=== PATIENT | male | born 1990 | race Caucasian/White ===

== ENCOUNTER 2016-06-03 13:46 | Emergency (ER) | payer MEDICAID ==
[2016-06-03] MEDS ORDERED: SULFAMETH/TRIMETH DS 800/160 MG TABLET PO STA (15:15)
[2016-06-03] MEDS ORDERED: FLUCONAZOLE 100 MG TABLET PO STA (15:15)
[2016-06-03] MEDS ORDERED: FLUCONAZOLE 100 MG TABLET ONE (15:17)
[2016-06-03] MEDS ORDERED: SULFAMETH/TRIMETH DS 800/160 MG TABLET PO ONE (15:18)
== END 2016-06-03 15:27 | disposition home or self-care (01) ==
DX: N39.0 Urinary tract infection, site not specified (principal); B37.2 Candidiasis of skin and nail; G82.20 Paraplegia, unspecified; S24.102S Unspecified injury at T2-T6 level of thoracic spinal cord, sequela; V03.90XS Pedestrian on foot injured in collision with car, pick-up truck or van, unspecified whether traffic or nontraffic accident, sequela; Z99.3 Dependence on wheelchair
CPT/HCPCS: 36415; 80048; 81001; 83605; 85025; 87086; 99283; A9270

== ENCOUNTER 2016-06-10 15:35 | Emergency (ER) | payer MEDICAID ==
[2016-06-10] MEDS ORDERED: CEPHALEXIN 250 MG CAPSULE PO STA (19:09)
[2016-06-10] MEDS ORDERED: CEPHALEXIN 250 MG CAPSULE PO ONE (19:18)
[2016-06-10] MEDS ORDERED: CEPHALEXIN 250 MG Prepack 8 PO ONE ×2 (19:49→19:54)
== END 2016-06-10 20:40 | disposition home or self-care (01) ==
DX: N30.01 Acute cystitis with hematuria (principal); G82.20 Paraplegia, unspecified; G47.30 Sleep apnea, unspecified
CPT/HCPCS: 51702; 81001; 87077; 87086; 87181; 99283; A9270

== ENCOUNTER 2016-06-14 13:58 | Emergency (ER) | payer MEDICAID ==
[2016-06-14] MEDS ORDERED: CIPROFLOXACIN 250 MG TABLET PO STA (15:32)
[2016-06-14] MEDS ORDERED: CIPROFLOXACIN 250 MG TABLET PO ONE (15:35)
== END 2016-06-14 15:46 | disposition home or self-care (01) ==
DX: N49.2 Inflammatory disorders of scrotum (principal); T83.511A Infection and inflammatory reaction due to indwelling urethral catheter, initial encounter; N39.0 Urinary tract infection, site not specified; Y84.6 Urinary catheterization as the cause of abnormal reaction of the patient, or of later complication, without mention of misadventure at the time of the procedure; R03.0 Elevated blood-pressure reading, without diagnosis of hypertension; G82.20 Paraplegia, unspecified; S24.102S Unspecified injury at T2-T6 level of thoracic spinal cord, sequela; X58.XXXS Exposure to other specified factors, sequela
CPT/HCPCS: 55100; 87070; 87077; 87181; 87205; 99283; A9270

== ENCOUNTER 2016-06-16 13:51 | Emergency (ER) | payer MEDICAID ==
[2016-06-16 14:17] VITALS: BP 148/90
--- NOTE | 2016-06-16 14:20 | ED Physician Documentation ---
PD HPI WOUND RECHECK - Stated complaint Stated Complaint: MALE - Chief complaint Chief Complaint: General - Histroy obtained from History obtained from: Patient - History of Present Illness Location: Other (R scrotum) Timing - onset: How many days ago (several) Pain level max: 0 Pain level now: 0 Associated symptoms: No: Fever, Redness, Swelling, Drainage Similar symptoms before: Diagnosis (abscess) Recently seen: Emergency Dept (2 days ago for same, I&D performed. Packing placed, here for recheck.) Review of Systems Constitutional: denies: Fever, Chills GI: denies: Vomiting Skin: denies: Rash Musculoskeletal: denies: Neck pain, Back pain Neurologic: denies: Headache PD PAST MEDICAL HISTORY - Past Medical History Respiratory: Asthma, Sleep apnea : Indwelling catheter Musculoskeletal: Paraplegia - Past Surgical History Past Surgical History: Yes HEENT: Tonsil/Adenoidectomy - Present Medications Home Medications: Ambulatory Orders Medication Instructions Recorded Confirmed Docusate Sodium 250Mg Capsule 0 mg PO .FREQ 06/03/16 06/16/16 [Colace 250Mg Capsule] Na Phos,M-B/Na Phos,Di-Ba [Enema] 0 mg PO .FREQ 06/03/16 06/16/16 Naproxen 0 mg PO .FREQ 06/03/16 06/16/16 Nystatin [Nystop] 1 applic TOP BID #1 bottle 06/03/16 06/16/16 Polyethylene Glycol 3350 [Miralax] 0 mg PO .FREQ 06/03/16 06/16/16 Senna [Senokot] 0 mg PO .FREQ 06/03/16 06/16/16 Sulfamethoxazole/Trimethoprim 1 each PO BID 7 Days 06/03/16 06/16/16 [Sulfamethoxazole-Tmp Ds Tablet] Cephalexin [Keflex] 500 mg PO QID #40 capsule 06/10/16 06/16/16 Ciprofloxacin HCl [Cipro] 500 mg PO BID #14 tablet 06/14/16 06/16/16 - Allergies Allergies/Adverse Reactions: Allergies Allergy/AdvReac Type Severity Reaction Status Date / Time No Known Drug Allergies Allergy Verified 06/16/16 14:13 - Social History Does the pt smoke?: No Smoking Status: Never smoker Does the pt drink ETOH?: No Does the pt have substance abuse?: No - Immunizations Immunizations are current?: Yes - POLST Patient has POLST: No PD ED PE NORMAL - Vitals Vital signs reviewed: Yes - General General: Alert and oriented X 3, No acute distress - Male Male : Other (Scrotum - Packing in place. No erythema, no drainage. No tenderness.) - Derm Derm: Warm and dry - Neuro Neuro: Alert and oriented X 3 - Psych Psych: Normal mood, Normal affect Results - Vitals Vitals: Vital Signs - 24 hr 06/16/16 06/16/16 14:00 14:17 Temperature 36.2 C L Heart Rate 93 107 H Respiratory 16 19 Rate Blood Pressure 148/90 H O2 Saturation 97 96 Oxygen O2 Source Room air PD MEDICAL DECISION MAKING - ED course Complexity details: reviewed old records, reviewed results, considered differential, d/w patient ED course: Patient presents to the emergency department for recheck of a scrotal abscess. Packing was removed. No drainage. No erythema, no swelling. We will continue antibiotics and follow-up with his doctor. Patient counseled regarding signs and symptoms for which I believe and urgent re-evaluation would be necessary. Patient with good understanding of and agreement to plan and is comfortable going home at this time This document was made in part using voice recognition software. While efforts are made to proofread this document, sound alike and grammatical errors may occur. Departure - Departure Disposition: 01 Home, Self Care Clinical Impression: Wound check, abscess Condition: Good Instructions: ED Abscess IandD Follow-Up: Ankit Ramey MD [Primary Care Provider] - Within 3 Days Comments: Return if you worsen. Continue your antibiotics at home. Your blood pressure was elevated today on check in to the emergency department. This does not mean that you have hypertension, it is a common phenomenon to check into the emergency department and have elevated blood pressure. I recommend that you see your primary care physician within the week to have it rechecked when you're feeling better. Discharge Date/Time: 06/16/16 15:18
== END 2016-06-16 15:18 | disposition home or self-care (01) ==
LOC: ED 13:51
DX: N49.2 Inflammatory disorders of scrotum (principal); R03.0 Elevated blood-pressure reading, without diagnosis of hypertension; G82.20 Paraplegia, unspecified; J45.909 Unspecified asthma, uncomplicated; G47.30 Sleep apnea, unspecified
CPT/HCPCS: 99283

== ENCOUNTER 2016-07-16 22:01 | Outpatient (CLI) | payer MEDICAID | END 2016-07-16 22:02 | disposition critical access hospital (66) | LOC: EMS 22:01 | PROVIDERS: ATTEND Surgery | DX: R31.9 Hematuria, unspecified (principal) | CPT/HCPCS: A0425; A0429 ==

== ENCOUNTER 2016-07-16 22:07 | Emergency (ER) | payer MEDICAID ==
[2016-07-16 22:16] VITALS: BP 115/68
[2016-07-16 22:32] LABS: BILIRUBIN,URINE NEGATIVE (NEGATIVE)
[2016-07-16 22:35] LABS: UA w/ MICROSCOPIC CHARGE YES
[2016-07-16 22:38] LABS: UR CULTURE IF IND INDICATED; WBC,URINE >25 /HPF (0-3)
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
[2016-07-16] MEDS ORDERED: CIPROFLOXACIN 250 MG TABLET PO STA (22:51)
[2016-07-16] MEDS ORDERED: CIPROFLOXACIN 250 MG TABLET PO ONE (22:55)
== END 2016-07-16 23:16 | disposition home or self-care (01) ==
LOC: EDUNIT# → ED 22:07
DX: T83.511A Infection and inflammatory reaction due to indwelling urethral catheter, initial encounter (principal); N30.91 Cystitis, unspecified with hematuria; G82.20 Paraplegia, unspecified; S24.102S Unspecified injury at T2-T6 level of thoracic spinal cord, sequela; V89.2XXS Person injured in unspecified motor-vehicle accident, traffic, sequela; J45.909 Unspecified asthma, uncomplicated; G47.30 Sleep apnea, unspecified
CPT/HCPCS: 81001; 87077; 87086; 87181; 99283; A9270; 81003

== ENCOUNTER 2016-07-16 23:25 | Outpatient (CLI) | payer MEDICAID | END 2016-07-16 23:26 | disposition home or self-care (01) | LOC: EMS 23:25 | PROVIDERS: ATTEND Surgery | DX: N39.0 Urinary tract infection, site not specified (principal) | CPT/HCPCS: A0425; A0428 ==

== ENCOUNTER 2016-07-19 18:36 | Emergency (ER) | payer MEDICAID ==
[2016-07-19 18:43] VITALS: BP 146/102
[2016-07-19] MEDS ORDERED: NITROFURANTOIN MACRO 100 MG CAPSULE PO STA (18:48)
--- NOTE | 2016-07-19 18:57 | ED Physician Documentation ---
History of Present Illness - Stated complaint Stated Complaint: MEDS NEEDED - Chief complaint Chief Complaint: General - History obtained from History obtained from: Patient - History of Present Illness Timing: Today Pain level max: 0 Pain level now: 0 - Additonal information Additional information: prescription for UTI was changed to macrobid today. States insurance won't cover until saturday. Review of Systems Constitutional: denies: Fever GI: denies: Abdominal Pain, Vomiting PD PAST MEDICAL HISTORY - Past Medical History Cardiovascular: None Respiratory: Asthma, Sleep apnea Neuro: None Endocrine/Autoimmune: None GI: None : Indwelling catheter HEENT: None Psych: None Musculoskeletal: Paraplegia Derm: None - Past Surgical History Past Surgical History: Yes HEENT: Tonsil/Adenoidectomy - Present Medications Home Medications: Ambulatory Orders Medication Instructions Recorded Confirmed Docusate Sodium 250Mg Capsule 250 mg PO .FREQ 06/03/16 07/19/16 [Colace 250Mg Capsule] Na Phos,M-B/Na Phos,Di-Ba [Enema] 133 mg PO .FREQ 06/03/16 07/19/16 Naproxen 500 mg PO .FREQ 06/03/16 07/19/16 Nystatin [Nystop] 1 applic TOP BID #1 bottle 06/03/16 07/19/16 Polyethylene Glycol 3350 [Miralax] 17 mg PO .FREQ 06/03/16 07/19/16 Senna [Senokot] 8.6 mg PO .FREQ 06/03/16 07/19/16 Albuterol Sulf [Ventolin Hfa 18 gm INH DAILY 07/16/16 07/19/16 Inhaler] Ciprofloxacin HCl [Cipro] 500 mg PO BID #20 tablet 07/16/16 07/19/16 Fluticasone Propionate [Flovent 250 mcg INH DAILY 07/16/16 07/19/16 Diskus] Nitrofurantoin Monohyd/M-Cryst 100 mg PO BID #2 capsule 07/19/16 [Macrobid 100 mg Capsule] - Allergies Allergies/Adverse Reactions: Allergies Allergy/AdvReac Type Severity Reaction Status Date / Time No Known Drug Allergies Allergy Verified 07/19/16 18:43 - Social History Does the pt smoke?: No Smoking Status: Never smoker Does the pt drink ETOH?: No Does the pt have substance abuse?: No - Immunizations Immunizations are current?: Yes - POLST Patient has POLST: No PD ED PE NORMAL - Vitals Vital signs reviewed: Yes - General General: Alert and oriented X 3, No acute distress - Derm Derm: Warm and dry - Neuro Neuro: Alert and oriented X 3 - Psych Psych: Normal mood, Normal affect Results - Vitals Vitals: Vital Signs - 24 hr 07/19/16 18:39 Temperature 36 C L Heart Rate 90 Respiratory 15 Rate Blood Pressure 146/102 H O2 Saturation 95 Oxygen O2 Source Room air PD MEDICAL DECISION MAKING - ED course Complexity details: reviewed old records, considered differential, d/w patient ED course: Patient is a 25-year-old male who presents to the emergency department stating he is unable to fill his Macrobid until Saturday because his insurance will not cover it. He is paraplegic and does have a chronic indwelling Page catheter. No other complaints at this time. 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 Patient counseled regarding signs and symptoms for which I believe and urgent re-evaluation would be necessary. Patient with good understanding of and agreement to plan and is comfortable going home at this time This document was made in part using voice recognition software. While efforts are made to proofread this document, sound alike and grammatical errors may occur. Departure - Departure Disposition: 01 Home, Self Care Clinical Impression: UTI (urinary tract infection) Qualifiers: Urinary tract infection type: catheter-associated UTI Indwelling urinary catheter type: indwelling urethral catheter Encounter type: initial encounter Qualified Code(s): T83.511A - Infection and inflammatory reaction due to indwelling urethral catheter, initial encounter Condition: Good Instructions: ED UTI Cystitis Male Follow-Up: Ankit Ramey MD [Primary Care Provider] - Within 1 week Prescriptions: Nitrofurantoin Monohyd/M-Cryst [Macrobid 100 mg Capsule] 100 mg PO BID #2 capsule Comments: This should get you through until saturday, when you can supervisor electronics assembly the remainder of your medications. Discharge Date/Time: 07/19/16 19:08
[2016-07-19] MEDS ORDERED: NITROFURANTOIN MACRO 100 MG CAPSULE PO ONE (19:03)
== END 2016-07-19 19:08 | disposition home or self-care (01) ==
LOC: ED 18:36
DX: T83.511A Infection and inflammatory reaction due to indwelling urethral catheter, initial encounter (principal); N39.0 Urinary tract infection, site not specified; Y84.6 Urinary catheterization as the cause of abnormal reaction of the patient, or of later complication, without mention of misadventure at the time of the procedure; G82.20 Paraplegia, unspecified
CPT/HCPCS: 99283; A9270

== ENCOUNTER 2016-08-09 06:58 | Outpatient (CLI) | payer MEDICAID | END 2016-08-09 06:59 | disposition critical access hospital (66) | LOC: EMS 06:58 | PROVIDERS: ATTEND Surgery | DX: N49.2 Inflammatory disorders of scrotum (principal) | CPT/HCPCS: A0425; A0429 ==

== ENCOUNTER 2016-08-09 07:03 | Emergency (ER) | payer MEDICAID ==
[2016-08-09 08:00] LABS: BILIRUBIN,URINE NEGATIVE (NEGATIVE); PH,URINE 6.5 PH (5.0-7.5)
[2016-08-09 08:04] LABS: UA w/ MICROSCOPIC CHARGE YES
[2016-08-09 08:16] LABS: UR CULTURE IF IND INDICATED; WBC,URINE >25 /HPF (0-3)
--- NOTE | 2016-08-09 09:21 | Ultrasound Report ---
LIMITED SCROTAL ULTRASOUND: 08/09/2016 CLINICAL INDICATION: Fluid coming from right side scrotum, evaluate for drainable collection. TECHNIQUE: Real-time scanning was performed with roofing sales representative static images obtained. FINDINGS: Ultrasound of the upper portion of the right scrotum was performed. The right testicle is visualized. Limited visualization of the right testicle appears unremarkable. There is scrotal ski n thickening. No drainable fluid collection is identified. IMPRESSION: SCROTAL SKIN THICKENING. NO EVIDENCE OF A DRAINABLE FLUID COLLECTION. JOB #: [id number] EXT JOB #:[id number]
[2016-08-09] MEDS ORDERED: cefTRIAXone 1 GM VIAL IM STA (09:24)
[2016-08-09] MEDS ORDERED: cefTRIAXone 1 GM VIAL ONE (09:34)
[2016-08-09] MEDS ORDERED: LIDOCAINE 1% 2 ML VIAL ONE (09:35)
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
[2016-08-09 13:12] VITALS: BP 150/82
== END 2016-08-09 13:10 | disposition home or self-care (01) ==
LOC: EDUNIT# → ED 07:03
DX: N49.2 Inflammatory disorders of scrotum (principal); G82.20 Paraplegia, unspecified; T83.511A Infection and inflammatory reaction due to indwelling urethral catheter, initial encounter; N30.01 Acute cystitis with hematuria; J45.909 Unspecified asthma, uncomplicated; G47.30 Sleep apnea, unspecified
CPT/HCPCS: 76870; 81001; 81003; 87077; 87086; 99283; 99284

== ENCOUNTER 2016-08-09 13:20 | Outpatient (CLI) | payer MEDICAID | END 2016-08-09 13:21 | disposition home or self-care (01) | LOC: EMS 13:20 | PROVIDERS: ATTEND Surgery | DX: G82.20 Paraplegia, unspecified (principal) | CPT/HCPCS: A0425; A0428 ==

== ENCOUNTER 2016-08-30 13:15 | Emergency (ER) | payer MEDICAID ==
[2016-08-30 13:31] LABS: BILIRUBIN,URINE NEGATIVE (NEGATIVE)
[2016-08-30 13:33] LABS: UA w/ MICROSCOPIC CHARGE YES
[2016-08-30 13:34] LABS: UR CULTURE IF IND INDICATED; WBC,URINE >25 /HPF (0-3)
[2016-08-30] MEDS ORDERED: cefTRIAXone 1 GM VIAL IM STA (14:55)
--- NOTE | 2016-08-30 14:57 | ED Physician Documentation ---
PD HPI MALE - Stated complaint Stated Complaint: MALE - Chief complaint Chief Complaint: Abd Pain - History obtained from History obtained from: Patient, Family - History of Present Illness Timing - onset: Yesterday Timing - duration: Days (1) Timing - details: Gradual onset, Still present Associated symptoms: Other (foul smelling cloudy urine from thomas) PD HPI MALE CONTRIB FACTORS: Indwelling catheter Similar symptoms before: Diagnosis (UTI) Recently seen: Emergency Dept (The patient has had a UTI in July and in August both time s organism was sensitive to Ceftriaxone and macrobid.) - Additional information Additional information: 25-year-old wheelchair bound T5 paraplegic with an indwelling Thomas catheter has developed foul-smelling urine and cloudy urine again. He most recently had a course of antibiotics started on 09 August which she has finished. He is not otherwise feeling ill, he has no nausea no fever no aches. Review of Systems Constitutional: denies: Fever, Chills, Myalgias, Fatigue, Sweats Eyes: denies: Decreased vision Nose: denies: Congestion Throat: denies: Sore throat Cardiac: denies: Chest pain / pressure Respiratory: denies: Cough GI: denies: Abdominal Pain, Nausea, Vomiting : reports: Other (foul smelling and cloudy urine). denies: Discharge Musculoskeletal: denies: Neck pain, Extremity swelling Neurologic: reports: Focal weakness. denies: Generalized weakness PD PAST MEDICAL HISTORY - Past Medical History Cardiovascular: None Respiratory: Asthma, Sleep apnea Neuro: None Endocrine/Autoimmune: None GI: None : Indwelling catheter HEENT: None Psych: None Musculoskeletal: Paraplegia Derm: None Other Past Medical History: Frequent UTIs - Past Surgical History Past Surgical History: Yes HEENT: Tonsil/Adenoidectomy - Present Medications Home Medications: Ambulatory Orders Medication Instructions Recorded Confirmed Docusate Sodium 250Mg Capsule 250 mg PO .FREQ 06/03/16 08/30/16 [Colace 250Mg Capsule] Na Phos,M-B/Na Phos,Di-Ba [Enema] 133 mg PO .FREQ 06/03/16 08/30/16 Naproxen 500 mg PO .FREQ 06/03/16 08/30/16 Nystatin [Nystop] 1 applic TOP BID #1 bottle 06/03/16 08/30/16 Polyethylene Glycol 3350 [Miralax] 17 mg PO .FREQ 06/03/16 08/30/16 Senna [Senokot] 8.6 mg PO .FREQ 06/03/16 08/30/16 Albuterol Sulf [Ventolin Hfa 18 gm INH DAILY 07/16/16 08/30/16 Inhaler] Fluticasone Propionate [Flovent 250 mcg INH DAILY 07/16/16 08/30/16 Diskus] Nitrofurantoin [Macrobid] 100 mg PO BID #20 capsule 08/30/16 - Allergies Allergies/Adverse Reactions: Allergies Allergy/AdvReac Type Severity Reaction Status Date / Time No Known Drug Allergies Allergy Verified 08/30/16 13:18 - Social History Does the pt smoke?: No Smoking Status: Never smoker Does the pt drink ETOH?: No Does the pt have substance abuse?: No - Immunizations Immunizations are current?: Yes - POLST Patient has POLST: No PD ED PE NORMAL - Vitals Vital signs reviewed: Yes (hypertensive) - General General: Alert and oriented X 3, No acute distress, Well developed/nourished - HEENT HEENT: Atraumatic, PERRL - Neck Neck: Supple, no meningeal sign - Respiratory Respiratory: No respiratory distress - Back Back: No CVA TTP, No spinal TTP - Derm Derm: Normal color, Warm and dry, No rash - Extremities Extremities: No deformity, No edema - Neuro Neuro: Alert and oriented X 3, 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, Normal speech - Psych Psych: Normal mood, Normal affect Results - Vitals Vitals: Vital Signs - 24 hr 08/30/16 13:17 Temperature 36.3 C L Heart Rate 94 Respiratory 17 Rate Blood Pressure 135/81 H O2 Saturation 100 Oxygen O2 Source Room air - Labs Labs: Laboratory Tests 08/30/16 13:20 Urine Color LIGHT YELLOW Urine Clarity CLOUDY Urine pH 7.0 Ur Specific [place] 1.020 Urine Protein 100 H Urine Glucose (UA) NEGATIVE Urine Ketones NEGATIVE Urine Occult Blood LARGE H Urine Nitrite POSITIVE H Urine Bilirubin NEGATIVE Urine Urobilinogen 0.2 (NORMAL) Ur Leukocyte Esterase LARGE H Urine RBC TNTC H Urine WBC >25 H Urine WBC Clumps PRESENT Ur Epithelial Cells FEW Renal Tubular Ur Squamous Epith Cells NONE SEEN Urine Bacteria Many H Ur Microscopic Review INDICATED Urine Culture Comments INDICATED PD MEDICAL DECISION MAKING - ED course Complexity details: reviewed old records, reviewed results, re-evaluated patient , considered differential, d/w patient, d/w family ED course: 25-year-old male paraplegic with an indwelling Thomas catheter has another urinary tract infection. He is given 1 g of Rocephin IM and we will put him back on the Macrobid. Departure - Departure Disposition: 01 Home, Self Care Clinical Impression: UTI (urinary tract infection) Qualifiers: Urinary tract infection type: catheter-associated UTI Indwelling urinary catheter type: indwelling urethral catheter Encounter type: initial encounter Qualified Code(s): T83.511A - Infection and inflammatory reaction due to indwelling urethral catheter, initial encounter; N39.0 - Urinary tract infection , site not specified Instructions: ED UTI Cystitis Male Follow-Up: Ankit Ramey MD [Primary Care Provider] - Prescriptions: Nitrofurantoin [Macrobid] 100 mg PO BID #20 capsule
[2016-08-30] MEDS ORDERED: cefTRIAXone 1 GM VIAL ONE (14:59)
[2016-08-30] MEDS ORDERED: LIDOCAINE 1% 2 ML VIAL ONE (15:00)
[2016-08-30 15:18] VITALS: BP 136/87
== END 2016-08-30 15:42 | disposition home or self-care (01) ==
LOC: ED 13:15
DX: T83.511A Infection and inflammatory reaction due to indwelling urethral catheter, initial encounter (principal); N39.0 Urinary tract infection, site not specified; Y84.6 Urinary catheterization as the cause of abnormal reaction of the patient, or of later complication, without mention of misadventure at the time of the procedure; Z99.3 Dependence on wheelchair; G82.20 Paraplegia, unspecified; J45.909 Unspecified asthma, uncomplicated
CPT/HCPCS: 81001; 81003; 87077; 87086; 96372; 99283

== ENCOUNTER 2016-09-25 21:20 | Emergency (ER) | payer MEDICAID ==
[2016-09-25] MEDS ORDERED: CARBAMIDE PEROXIDE 6.5% OTIC DROPS EACHEAR STA (22:37)
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
[2016-09-25] MEDS ORDERED: CARBAMIDE PEROXIDE 6.5% OTIC DROPS ONE (22:40)
[2016-09-25 22:49] VITALS: BP 132/80
== END 2016-09-25 22:59 | disposition home or self-care (01) ==
LOC: ED 21:20
DX: H61.23 Impacted cerumen, bilateral (principal); J45.909 Unspecified asthma, uncomplicated; G47.30 Sleep apnea, unspecified; G82.20 Paraplegia, unspecified
CPT/HCPCS: 99283

== ENCOUNTER 2016-09-29 17:45 | Emergency (ER) | payer MEDICAID ==
--- NOTE | 2016-09-29 18:06 | ED Physician Documentation ---
PD HPI HEENT FB - Chief complaint Chief Complaint: Heent - History obtained from History obtained from: Patient - History of Present Illness Timing - onset: Other (Seen here a few nights ago for cerumen impaction with incomplete relief and continues to have right ear fullness especially with no hearing there despite using earwax drops.) Review of Systems Constitutional: denies: Fever, Chills Ears: reports: Loss of hearing, Ear pain Nose: denies: Rhinorrhea / runny nose, Congestion PD PAST MEDICAL HISTORY - Past Medical History Cardiovascular: None Respiratory: Asthma, Sleep apnea Neuro: None Endocrine/Autoimmune: None GI: None : Indwelling catheter HEENT: None Psych: None Musculoskeletal: Paraplegia Derm: None - Past Surgical History Past Surgical History: Yes HEENT: Tonsil/Adenoidectomy - Present Medications Home Medications: Ambulatory Orders Medication Instructions Recorded Confirmed Docusate Sodium 250Mg Capsule 250 mg PO .FREQ 06/03/16 08/30/16 [Colace 250Mg Capsule] Na Phos,M-B/Na Phos,Di-Ba [Enema] 133 mg PO .FREQ 06/03/16 08/30/16 Naproxen 500 mg PO .FREQ 06/03/16 08/30/16 Nystatin [Nystop] 1 applic TOP BID #1 bottle 06/03/16 08/30/16 Polyethylene Glycol 3350 [Miralax] 17 mg PO .FREQ 06/03/16 08/30/16 Senna [Senokot] 8.6 mg PO .FREQ 06/03/16 08/30/16 Albuterol Sulf [Ventolin Hfa 18 gm INH DAILY 07/16/16 08/30/16 Inhaler] Fluticasone Propionate [Flovent 250 mcg INH DAILY 07/16/16 08/30/16 Diskus] Nitrofurantoin [Macrobid] 100 mg PO BID #20 capsule 08/30/16 - Allergies Allergies/Adverse Reactions: Allergies Allergy/AdvReac Type Severity Reaction Status Date / Time No Known Drug Allergies Allergy Verified 09/29/16 17:51 - Social History Does the pt smoke?: No Smoking Status: Never smoker Does the pt drink ETOH?: No Does the pt have substance abuse?: No - Immunizations Immunizations are current?: Yes - POLST Patient has POLST: No PD ED PE NORMAL - Vitals Vital signs reviewed: Yes - General General: Alert and oriented X 3, No acute distress, Other (Paraplegic, in a wheelchair) - HEENT HEENT: Other (Complete cerumen impaction on the right and partial on the left) - Neuro Neuro: Alert and oriented X 3, Normal speech Results - Vitals Vitals: Vital Signs - 24 hr 09/29/16 17:48 Temperature 37 C Heart Rate 110 H Respiratory 17 Rate Blood Pressure 161/93 H O2 Saturation 97 Oxygen O2 Source Room air Procedures - General procedure General procedure: Both ears were disimpacted of cerumen using syringe irrigation with complete success. Departure - Departure Disposition: 01 Home, Self Care Clinical Impression: Impacted cerumen of both ears Condition: Good Record reviewed to determine appropriate education?: Yes Instructions: ED Earwax Removal Comments: Your blood pressure was elevated today on check into the emergency department. This does not mean that you have hypertension, it is a common phenomenon to come to the emergency department and have elevated blood pressure. I recommend that she see her primary care physician within the week to have it rechecked when you are feeling better.
[2016-09-29 18:13] VITALS: BP 129/90
== END 2016-09-29 18:12 | disposition home or self-care (01) ==
LOC: ED 17:45
DX: H61.23 Impacted cerumen, bilateral (principal); G82.20 Paraplegia, unspecified; J45.909 Unspecified asthma, uncomplicated; G47.30 Sleep apnea, unspecified; R03.0 Elevated blood-pressure reading, without diagnosis of hypertension
CPT/HCPCS: 69209; 99282; 99283

== ENCOUNTER 2017-01-14 23:48 | Outpatient (CLI) | payer MEDICAID | END 2017-01-14 23:49 | disposition critical access hospital (66) | LOC: EMS 23:48 | PROVIDERS: ATTEND Surgery | DX: T85.638A Leakage of other specified internal prosthetic devices, implants and grafts, initial encounter (principal) | CPT/HCPCS: A0425; A0429 ==

== ENCOUNTER 2017-01-14 23:56 | Emergency (ER) | payer MEDICAID ==
--- NOTE | 2017-01-15 00:28 | ED Physician Documentation ---
History of Present Illness - Stated complaint Stated Complaint: LEAKING CATHETER - Chief complaint Chief Complaint: General - History obtained from History obtained from: Patient - History of Present Illness Timing: Today (tonight) Pain level now: 0 - Additonal information Additional information: patient is paraplegic and has indwelling thomas as a result. Tonight, he noted leaking around the catheter into his diaper. He does not have sensation that would otherwise allow him to feel when his bladder is full. He says that this has happened before with his catheter, and sometimes it will resolve on its own and other times he has had to have the catheter changed. Review of Systems Constitutional: denies: Fever GI: denies: Abdominal Pain PD PAST MEDICAL HISTORY - Past Medical History Past Medical History: Yes Cardiovascular: None Respiratory: Asthma, Sleep apnea Neuro: None Endocrine/Autoimmune: None GI: None : Indwelling catheter HEENT: None Psych: None Musculoskeletal: Paraplegia Derm: None - Past Surgical History Past Surgical History: Yes HEENT: Tonsil/Adenoidectomy - Present Medications Home Medications: Ambulatory Orders Medication Instructions Recorded Confirmed Docusate Sodium 250Mg Capsule 250 mg PO .FREQ 06/03/16 08/30/16 [Colace 250Mg Capsule] Na Phos,M-B/Na Phos,Di-Ba [Enema] 133 mg PO .FREQ 06/03/16 08/30/16 Naproxen 500 mg PO .FREQ 06/03/16 08/30/16 Nystatin [Nystop] 1 applic TOP BID #1 bottle 06/03/16 08/30/16 Polyethylene Glycol 3350 [Miralax] 17 mg PO .FREQ 06/03/16 08/30/16 Senna [Senokot] 8.6 mg PO .FREQ 06/03/16 08/30/16 Albuterol Sulf [Ventolin Hfa 18 gm INH DAILY 07/16/16 08/30/16 Inhaler] Fluticasone Propionate [Flovent 250 mcg INH DAILY 07/16/16 08/30/16 Diskus] Nitrofurantoin [Macrobid] 100 mg PO BID #20 capsule 08/30/16 - Allergies Allergies/Adverse Reactions: Allergies Allergy/AdvReac Type Severity Reaction Status Date / Time No Known Drug Allergies Allergy Verified 01/15/17 00:05 - Social History Does the pt smoke?: No Smoking Status: Never smoker Does the pt drink ETOH?: No Does the pt have substance abuse?: No - Immunizations Immunizations are current?: Yes - POLST Patient has POLST: No PD ED PE NORMAL - Vitals Vital signs reviewed: Yes - General General: Alert and oriented X 3, No acute distress - Abdomen Abdomen: Soft, Non tender, Non distended - Derm Derm: Normal color, Warm and dry - Neuro Neuro: Alert and oriented X 3 Results - Vitals Vitals: Vital Signs - 24 hr 01/14/17 01/15/17 01/15/17 23:59 00:30 00:45 Temperature 36.2 C L Heart Rate 107 H 90 90 Respiratory 18 16 18 Rate Blood Pressure 154/104 H 140/96 H 133/88 H O2 Saturation 97 96 100 Oxygen O2 Source Room air PD MEDICAL DECISION MAKING - ED course Complexity details: reviewed old records, considered differential, d/w patient ED course: RN removed thomas and replaced it without difficulty or resistance. There was large amount of clear, yellow urine in the thomas bag on presentation (before the thomas was removed; there was over 1000 cc in the leg bag). After catheter was replaced, there was small amount of urine output, clear yellow urine. Departure - Departure Disposition: 01 Home, Self Care Clinical Impression: Thomas catheter problem Qualifiers: Encounter type: initial encounter Qualified Code(s): T83.9XXA - Unspecified complication of genitourinary prosthetic device, implant and graft, initial encounter Condition: Good Instructions: ED Catheter Care Thomas Discharge Date/Time: 01/15/17 00:45
[2017-01-15 00:51] VITALS: BP 133/88
== END 2017-01-15 00:45 | disposition home or self-care (01) ==
LOC: EDUNIT# → ED 23:56
DX: T83.9XXA Unspecified complication of genitourinary prosthetic device, implant and graft, initial encounter (principal); G82.20 Paraplegia, unspecified
CPT/HCPCS: 51702; 99283

== ENCOUNTER 2017-01-15 00:49 | Outpatient (CLI) | payer MEDICAID | END 2017-01-15 00:50 | disposition home or self-care (01) | LOC: EMS 00:49 | PROVIDERS: ATTEND Surgery | DX: T85.638A Leakage of other specified internal prosthetic devices, implants and grafts, initial encounter (principal) | CPT/HCPCS: A0425; A0428 ==

== ENCOUNTER 2017-04-02 01:03 | Outpatient (CLI) | payer MEDICAID | END 2017-04-02 01:04 | disposition critical access hospital (66) | LOC: EMS 01:03 | PROVIDERS: ATTEND Surgery | DX: R11.2 Nausea with vomiting, unspecified (principal) | CPT/HCPCS: A0425; A0429 ==

== ENCOUNTER 2017-04-02 01:10 | Emergency (ER) | payer MEDICAID ==
[2017-04-02] MEDS ORDERED: ONDANSETRON 4 MG/2 ML VIAL IVP STA (01:17)
[2017-04-02] MEDS ORDERED: SODIUM CHLORIDE 0.9% 1,000 ML IV ONE ×3 (01:17→04:22)
[2017-04-02 01:45] LABS: BASOPHILS # (AUTO) 0.1 10^3/uL (0.0-0.1); BASOPHILS % (AUTO) 0.5 %; EOSINOPHILS # (AUTO) 0.1 10^3/uL (0.0-0.7); EOSINOPHILS % (AUTO) 0.4 %; HGB - HEMOGLOBIN 12.1 g/dL (14.0-18.0); LYMPHOCYTES # (AUTO) 1.1 10^3/uL (1.5-3.5); LYMPHOCYTES % (AUTO) 9.2 %; MEAN CORPUSCULAR HEMOGLOBIN 26.2 pg (27.0-31.0); MEAN CORPUSCULAR HGB CONC 30.5 g/dL (32.0-36.0); MEAN CORPUSCULAR VOLUME 85.9 fL (80.0-94.0); MEAN PLATELET VOLUME 7.8 fL (7.4-11.4); MONOCYTES # (AUTO) 0.8 10^3/uL (0.0-1.0); MONOCYTES % (AUTO) 6.6 %; NEUTROPHILS # (AUTO) 10.3 10^3/uL (1.5-6.6); NEUTROPHILS % (AUTO) 83.3 %; PLT - PLATELET COUNT 292 10^3/uL (130-450); RED BLOOD COUNT 4.63 10^6/uL (4.70-6.10); RED CELL DISTRIBUTION WIDTH 15.2 % (12.0-15.0); WHITE BLOOD COUNT 12.3 x10^3/uL (4.8-10.8)
[2017-04-02 01:49] LABS: GLUCOSE, URINE (UA) NEGATIVE (NEGATIVE); KETONES,URINE (UA) NEGATIVE (NEGATIVE); OCCULT BLOOD,URINE LARGE (NEGATIVE)
[2017-04-02 01:52] LABS: ALBUMIN 3.6 g/dL (3.2-5.5); ALBUMIN/GLOBULIN RATIO 0.9 (1.0-2.2); BILIRUBIN,TOTAL 0.8 mg/dL (0.2-1.0); CALCIUM 8.4 mg/dL (8.5-10.3); CREATININE 0.6 mg/dL (0.6-1.2); TOTAL PROTEIN 7.7 g/dL (6.7-8.2)
[2017-04-02 01:53] LABS: CLARITY,URINE BLOODY (CLEAR)
[2017-04-02 01:57] LABS: BILIRUBIN,URINE COLOR INTERFERENCE (NEGATIVE)
[2017-04-02] MEDS ORDERED: levoFLOXacin 750 MG/150 ML 750 MG/150 ML BAG IV ONE ×2 (01:58→02:11)
[2017-04-02 02:00] LABS: RBC,URINE TNTC /HPF (0-5)
[2017-04-02 02:01] LABS: BACTERIA,URINE Moderate /HPF (None Seen); SQUAMOUS EPITHELIAL CELL,UR RARE Squamous (<= Few)
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
[2017-04-02 05:08] VITALS: BP 113/63
== END 2017-04-02 05:35 | disposition home or self-care (01) ==
LOC: EDBD → EDUNIT# → SUPCPDRO 01:10 → ED 01:10
DX: N39.0 Urinary tract infection, site not specified (principal); G82.20 Paraplegia, unspecified; Z96.0 Presence of urogenital implants; J45.909 Unspecified asthma, uncomplicated; R11.2 Nausea with vomiting, unspecified
CPT/HCPCS: 36415; 80053; 81001; 81003; 83605; 83690; 85025; 87040; 87077; 87086; 93005; 96361; 96374; 99283; 99284

== ENCOUNTER 2017-04-02 05:43 | Outpatient (CLI) | payer MEDICAID | END 2017-04-02 05:44 | disposition home or self-care (01) | LOC: EMS 05:43 | PROVIDERS: ATTEND Surgery | DX: N39.0 Urinary tract infection, site not specified (principal); G82.20 Paraplegia, unspecified | CPT/HCPCS: A0425; A0428 ==

== ENCOUNTER 2017-04-03 17:10 | Outpatient (CLI) | payer MEDICAID | END 2017-04-03 17:11 | disposition critical access hospital (66) | LOC: EMS 17:10 | PROVIDERS: ATTEND Surgery | DX: N50.9 Disorder of male genital organs, unspecified (principal); G82.20 Paraplegia, unspecified | CPT/HCPCS: A0425; A0429 ==

== ENCOUNTER 2017-04-03 17:17 | Emergency (ER) | payer MEDICAID ==
--- NOTE | 2017-04-03 17:41 | ED Physician Documentation ---
PD HPI MALE - Stated complaint Stated Complaint: MALE - Chief complaint Chief Complaint: General - History obtained from History obtained from: Patient - History of Present Illness Timing - onset: Today (he has wetness/drainage on right scrotum and feels there is some blood/drainage. He thought it was initially coming from around thomas catheter. 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 He is not sure where is was coming from. Sore noted on right scrotum.) PD HPI MALE CONTRIB FACTORS: Indwelling catheter Similar symptoms before: Has not had sx before (not in that area but has had staph infections in other areas.) Review of Systems Constitutional: denies: Fever, Chills Nose: denies: Rhinorrhea / runny nose, Congestion Throat: denies: Sore throat Respiratory: denies: Dyspnea, Cough GI: denies: Abdominal Pain, Vomiting Neurologic: reports: Focal weakness (from lower abdomen down, due to prior cord injury.) PD PAST MEDICAL HISTORY - Past Medical History Cardiovascular: None Respiratory: Asthma, Sleep apnea Neuro: None Endocrine/Autoimmune: None GI: None : Indwelling catheter HEENT: None Psych: None Musculoskeletal: Paraplegia Derm: None - Past Surgical History Past Surgical History: Yes HEENT: Tonsil/Adenoidectomy - Present Medications Home Medications: Ambulatory Orders Medication Instructions Recorded Confirmed Docusate Sodium 250Mg Capsule 250 mg PO DAILY PRN 06/03/16 04/07/17 [Colace 250Mg Capsule] Na Phos,M-B/Na Phos,Di-Ba [Enema] 133 mg [place] DAILY 06/03/16 04/07/17 Naproxen 500 mg PO BID PRN 06/03/16 04/07/17 Senna [Senokot] 8.6 mg PO DAILY PRN 06/03/16 04/07/17 Albuterol Sulf [Ventolin Hfa 2 puffs INH DAILY PRN 07/16/16 04/07/17 Inhaler] Psyllium [Metamucil] 1 packet PO DAILY PRN 03/06/17 04/07/17 Levofloxacin [Levaquin] 750 mg PO DAILY #4 tablet 04/02/17 04/07/17 Ondansetron Odt [Zofran] 4 mg TL Q6H PRN #20 tablet 04/02/17 04/07/17 Mupirocin 1 applic TP TID #15 oint...g. 04/03/17 04/07/17 Sulfamethox/Trimeth 800/160 1 each PO BID #14 tablet 04/03/17 04/07/17 [Bactrim Ds 800/160] - Allergies Allergies/Adverse Reactions: Allergies Allergy/AdvReac Type Severity Reaction Status Date / Time No Known Drug Allergies Allergy Verified 04/07/17 13:08 - Living Situation Living Situation: reports: With family Living Arrangement: reports: At home, Other (uses [employer] at home for transfers and has wheelchair. ) - Social History Does the pt smoke?: No Smoking Status: Never smoker Does the pt drink ETOH?: No Does the pt have substance abuse?: No - Immunizations Immunizations are current?: Yes - POLST Patient has POLST: No PD ED PE NORMAL - Vitals Vital signs reviewed: Yes - General General: Alert and oriented X 3, Well developed/nourished - Neck Neck: Supple, no meningeal sign, No adenopathy - Cardiac Cardiac: RRR, No murmur - Respiratory Respiratory: Clear bilaterally - Abdomen Abdomen: Non distended - Male Male : Other (thomas in place with normal meatus. Right scrotum with open sore that has some serosanginous drainage. No redness of the scrotal tissue. Culture obtained. Presume staph sore/abscess that drained spontaneously. ) - Rectal Rectal: Deferred - Back Back: No CVA TTP - Derm Derm: Normal color, Warm and dry Results - Vitals Vitals: Oxygen O2 Source Room air - Labs Labs: Microbiology 04/03/17 18:00 Wound Culture - Final Scrotum Enterobacter Cloacae Complex PD MEDICAL DECISION MAKING - ED course Complexity details: considered differential (he has a sore on right scrotum that is open and has some draining. He also had UTI by UA. Has indwelling thomas. ), d/w patient Departure - Departure Disposition: 01 Home, Self Care Clinical Impression: Scrotal abscess, Paraplegia UTI (urinary tract infection) Qualifiers: Urinary tract infection type: catheter-associated UTI Indwelling urinary catheter type: indwelling urethral catheter Encounter type: subsequent encounter Qualified Code(s): T83.511D - Infection and inflammatory reaction due to indwelling urethral catheter, subsequent encounter Condition: Stable Record reviewed to determine appropriate education?: Yes Instructions: ED Staph Infec Abx Tx Only Prescriptions: Mupirocin 1 applic TP TID #15 oint...g. Sulfamethox/Trimeth 800/160 [Bactrim Ds 800/160] 1 each PO BID #14 tablet Comments: It does look like a scrotal abscess or infection of the skin. There is only slight drainage right now and the opening is patent. This may be similar type of infection to what is in the urinary tract but I be concerned of staph infection instead and would like to cover that with Bactrim antibiotic. The urine culture result is not done from your visit recently. If that returns in the next day or 2 showing urinary sensitivity to sulfa, then we could discontinue the Levaquin and just treat with the Bactrim only. Clean the scrotal skin area with warm water and soap and water twice daily and apply mupirocin antibiotic ointment. Recheck if not improving over the next few days. Discharge Date/Time: 04/03/17 18:52
[2017-04-03] MEDS ORDERED: MUPIROCIN 2% OINT 1 GM TOP STA (17:59)
[2017-04-03] MEDS ORDERED: SULFAMETH/TRIMETH DS 800/160 MG TABLET PO STA (17:59)
[2017-04-03 18:52] VITALS: BP 130/88
== END 2017-04-03 18:52 | disposition home or self-care (01) ==
LOC: EDUNIT# → ED 17:17
DX: N49.2 Inflammatory disorders of scrotum (principal); T83.511A Infection and inflammatory reaction due to indwelling urethral catheter, initial encounter; G82.20 Paraplegia, unspecified; J45.909 Unspecified asthma, uncomplicated; G47.30 Sleep apnea, unspecified
CPT/HCPCS: 87070; 87077; 87181; 87205; 99283; A9270

== ENCOUNTER 2017-04-03 18:55 | Outpatient (CLI) | payer MEDICAID | END 2017-04-03 18:56 | disposition home or self-care (01) | LOC: EMS 18:55 | PROVIDERS: ATTEND Surgery | DX: G82.20 Paraplegia, unspecified (principal); E66.01 Morbid (severe) obesity due to excess calories | CPT/HCPCS: A0425; A0428 ==

== ENCOUNTER 2017-04-05 17:48 | Outpatient (CLI) | payer MEDICAID | END 2017-04-05 17:49 | disposition critical access hospital (66) | LOC: EMS 17:48 | PROVIDERS: ATTEND Surgery | DX: B99.9 Unspecified infectious disease (principal) | CPT/HCPCS: A0425; A0429 ==

== ENCOUNTER 2017-04-05 17:54 | Emergency (ER) | payer MEDICAID ==
--- NOTE | 2017-04-05 18:59 | ED Physician Documentation ---
PD HPI FEMALE - Stated complaint Stated Complaint: NEEDS IV MEDS - Chief complaint Chief Complaint: General - History obtained from History obtained from: Patient - History of Present Illness Timing - onset: How many days ago (few) Timing - details: Gradual onset Associated symptoms: No: Fever, Hematuria Contributing factors: Other (indwelling thomas due to paraplegia.) Recently seen: Emergency Dept (he was seen for lower abd pains few days ago and had UTI dx (with indwelling thomas). Also then next day with scrotal sore and culture obtained. Urine culture not resulted at that time, but is now reported as atypical bacterial cause that is resistant to many meds. Patient is called to get IV abx dose, as no oral med would cover it by culture result. The scrotal sore is prelim with gram positive cocci, no ID as yet.) Review of Systems Constitutional: denies: Fever, Chills GI: denies: Vomiting, Diarrhea PD PAST MEDICAL HISTORY - Past Medical History Cardiovascular: None Respiratory: Asthma, Sleep apnea Neuro: None Endocrine/Autoimmune: None GI: None : Indwelling catheter HEENT: None Psych: None Musculoskeletal: Paraplegia Derm: None - Past Surgical History Past Surgical History: Yes HEENT: Tonsil/Adenoidectomy - Present Medications Home Medications: Ambulatory Orders Medication Instructions Recorded Confirmed Docusate Sodium 250Mg Capsule 250 mg PO DAILY PRN 06/03/16 04/06/17 [Colace 250Mg Capsule] Na Phos,M-B/Na Phos,Di-Ba [Enema] 133 mg [place] DAILY 06/03/16 04/06/17 Naproxen 500 mg PO BID PRN 06/03/16 04/06/17 Senna [Senokot] 8.6 mg PO DAILY PRN 06/03/16 04/06/17 Albuterol Sulf [Ventolin Hfa 2 puffs INH DAILY PRN 07/16/16 04/06/17 Inhaler] Psyllium [Metamucil] 1 packet PO DAILY PRN 03/06/17 04/06/17 Levofloxacin [Levaquin] 750 mg PO DAILY #4 tablet 04/02/17 04/06/17 Ondansetron Odt [Zofran] 4 mg TL Q6H PRN #20 tablet 04/02/17 04/06/17 Mupirocin 1 applic TP TID #15 oint...g. 04/03/17 04/06/17 Sulfamethox/Trimeth 800/160 1 each PO BID #14 tablet 04/03/17 04/06/17 [Bactrim Ds 800/160] - Allergies Allergies/Adverse Reactions: Allergies Allergy/AdvReac Type Severity Reaction Status Date / Time No Known Drug Allergies Allergy Verified 04/06/17 12:35 - Social History Does the pt smoke?: No Smoking Status: Never smoker Does the pt drink ETOH?: No Does the pt have substance abuse?: No - Immunizations Immunizations are current?: Yes - POLST Patient has POLST: No PD ED PE NORMAL - Vitals Vital signs reviewed: Yes - General General: Alert and oriented X 3, No acute distress, Well developed/nourished - Abdomen Abdomen: Soft, Non tender - Back Back: No CVA TTP - Derm Derm: Warm and dry - Neuro Neuro: Alert and oriented X 3, Other (leg paralysis c/w baseline. ) Results - Vitals Vitals: Oxygen O2 Source Room air PD MEDICAL DECISION MAKING - ED course Complexity details: considered differential (no worse symptoms. However had to come to ED for IV dose of meds. Gentamycin chosen as will cover the urine culture sensitivities from Urine culture and should cover staph presuming that is what will grow from scrotal sore. Tried to give 5 mg/kg for daily dosing, but Hospital only has 5 vials (400 mg) available. Have to be close enough for now, and will have him return tomorrow afternoon for repeat dose. Presume 5 days course. Will change thomas today since getting appropriate abx for it. ), d/ w patient Departure - Departure Disposition: 01 Home, Self Care Clinical Impression: UTI (urinary tract infection) Qualifiers: Urinary tract infection type: catheter-associated UTI Indwelling urinary catheter type: indwelling urethral catheter Encounter type: subsequent encounter Qualified Code(s): T83.511D - Infection and inflammatory reaction due to indwelling urethral catheter, subsequent encounter Condition: Stable Record reviewed to determine appropriate education?: Yes Instructions: ED UTI Cystitis Male Follow-Up: NANDA ORTEGA [Primary Care Provider] - Comments: Return to ED tomorrow for repeat dose of antibiotics. Presume this will be daily treatment for 5 days or so. Discharge Date/Time: 04/05/17 22:02
[2017-04-05] MEDS ORDERED: GENTAMICIN 40 MG/1 ML 2 ML MDV IV STA (19:00)
[2017-04-05] MEDS ORDERED: GENTAMICIN 40 MG/1 ML 2 ML MDV ONE ×2 (19:38→19:41)
[2017-04-05] MEDS ORDERED: GENTAMICIN 400 MG in SODIUM CHLORIDE 0.9% 100ML 100 ML IV STA (19:42)
[2017-04-05 21:37] VITALS: BP 132/88
== END 2017-04-05 22:02 | disposition home or self-care (01) ==
LOC: EDUNIT# → ED 17:54
DX: T83.511D Infection and inflammatory reaction due to indwelling urethral catheter, subsequent encounter (principal); G82.20 Paraplegia, unspecified
CPT/HCPCS: 51703; 96365; 99283; 99284

== ENCOUNTER 2017-04-05 22:13 | Outpatient (CLI) | payer MEDICAID | END 2017-04-05 22:14 | disposition home or self-care (01) | LOC: EMS 22:13 | PROVIDERS: ATTEND Surgery | DX: N39.0 Urinary tract infection, site not specified (principal); G82.20 Paraplegia, unspecified | CPT/HCPCS: A0425; A0429 ==

== ENCOUNTER 2017-04-06 12:27 | Emergency (ER) | payer MEDICAID ==
[2017-04-06] MEDS ORDERED: GENTAMICIN 400 MG in SODIUM CHLORIDE 0.9% 100ML 100 ML IV STA (13:10)
--- NOTE | 2017-04-06 13:13 | ED Physician Documentation ---
History of Present Illness - Stated complaint Stated Complaint: MALE - Chief complaint Chief Complaint: General - History obtained from History obtained from: Patient - History of Present Illness Timing: Other (26-year-old gentleman with paraplegia due to prior trauma with indwelling Page in place was seen 2 days ago and has a UTI and a small wound on the scrotum, both of which are growing pretty caraballo resistant organisms and he returns for repeat gentamicin dosing. He has no acute complaints, specifically no fevers and he feels like the sore is getting better.) Review of Systems Constitutional: denies: Fever, Chills Cardiac: reports: Reviewed and negative Respiratory: reports: Reviewed and negative PD PAST MEDICAL HISTORY - Past Medical History Past Medical History: Yes Cardiovascular: None Respiratory: Asthma, Sleep apnea Neuro: None Endocrine/Autoimmune: None GI: None : Indwelling catheter HEENT: None Psych: None Musculoskeletal: Paraplegia Derm: None - Past Surgical History Past Surgical History: Yes HEENT: Tonsil/Adenoidectomy - Present Medications Home Medications: Ambulatory Orders Medication Instructions Recorded Confirmed Docusate Sodium 250Mg Capsule 250 mg PO DAILY PRN 06/03/16 04/06/17 [Colace 250Mg Capsule] Na Phos,M-B/Na Phos,Di-Ba [Enema] 133 mg [place] DAILY 06/03/16 04/06/17 Naproxen 500 mg PO BID PRN 06/03/16 04/06/17 Senna [Senokot] 8.6 mg PO DAILY PRN 06/03/16 04/06/17 Albuterol Sulf [Ventolin Hfa 2 puffs INH DAILY PRN 07/16/16 04/06/17 Inhaler] Psyllium [Metamucil] 1 packet PO DAILY PRN 03/06/17 04/06/17 Levofloxacin [Levaquin] 750 mg PO DAILY #4 tablet 04/02/17 04/06/17 Ondansetron Odt [Zofran] 4 mg TL Q6H PRN #20 tablet 04/02/17 04/06/17 Mupirocin 1 applic TP TID #15 oint...g. 04/03/17 04/06/17 Sulfamethox/Trimeth 800/160 1 each PO BID #14 tablet 04/03/17 04/06/17 [Bactrim Ds 800/160] - Allergies Allergies/Adverse Reactions: Allergies Allergy/AdvReac Type Severity Reaction Status Date / Time No Known Drug Allergies Allergy Verified 04/06/17 12:35 - Social History Does the pt smoke?: No Smoking Status: Never smoker Does the pt drink ETOH?: No Does the pt have substance abuse?: No - Immunizations Immunizations are current?: Yes - POLST Patient has POLST: No PD ED PE NORMAL - Vitals Vital signs reviewed: Yes - General General: Alert and oriented X 3, No acute distress, Other (Wheelchair-bound) - Abdomen Abdomen: Non tender - Male Male : Other (There is a small abscess that is completely drained on the [id number] of the right scrotum) - Derm Derm: Normal color, Warm and dry - Psych Psych: Normal mood, Normal affect Results - Vitals Vitals: Vital Signs - 24 hr 04/06/17 12:34 Temperature 35.7 C L Heart Rate 85 Respiratory 18 Rate Blood Pressure 141/85 H O2 Saturation 95 Oxygen O2 Source Room air PD MEDICAL DECISION MAKING - ED course ED course: I called the pharmacist, she recommended 7 mg/kg, but not based on either his ideal nor his actual body weight. She plans to do a special calculation and deliver the medication. Departure - Departure Disposition: 01 Home, Self Care Clinical Impression: Receiving intravenous antibiotic treatment as outpatient UTI (urinary tract infection) Qualifiers: Urinary tract infection type: catheter-associated UTI Indwelling urinary catheter type: indwelling urethral catheter Encounter type: subsequent encounter Qualified Code(s): T83.511D - Infection and inflammatory reaction due to indwelling urethral catheter, subsequent encounter; N39.0 - Urinary tract infection, site not specified; N39.0 - Urinary tract infection, site not specified Comments: Return tomorrow for repeat dosing of gentamicin, sooner if worse or if running a fever. Remember the IV will have to be changed after tomorrow.
[2017-04-06] MEDS ORDERED: GENTAMICIN 700 MG in SODIUM CHLORIDE 0.9% 100 ML IV SCH (13:30)
[2017-04-06 15:00] VITALS: BP 132/87
== END 2017-04-06 15:15 | disposition home or self-care (01) ==
LOC: ED 12:27
DX: T83.511D Infection and inflammatory reaction due to indwelling urethral catheter, subsequent encounter (principal); N39.0 Urinary tract infection, site not specified; G82.20 Paraplegia, unspecified; J45.909 Unspecified asthma, uncomplicated
CPT/HCPCS: 99283

== ENCOUNTER 2017-04-07 13:05 | Emergency (ER) | payer MEDICAID ==
[2017-04-07 13:08] VITALS: BP 145/87
[2017-04-07] MEDS ORDERED: GENTAMICIN IV STA (13:51)
[2017-04-07] MEDS ORDERED: SODIUM CHLORIDE 0.9% IV STA (13:51)
--- NOTE | 2017-04-07 13:56 | ED Physician Documentation ---
History of Present Illness - Stated complaint Stated Complaint: INFUSION - Chief complaint Chief Complaint: UTI - History obtained from History obtained from: Patient - History of Present Illness Timing: Other (Returns as instructed for gentamicin dosing, doing well overnight without fevers.) Review of Systems Constitutional: denies: Fever, Chills Nose: reports: Reviewed and negative Cardiac: reports: Reviewed and negative Respiratory: reports: Reviewed and negative PD PAST MEDICAL HISTORY - Past Medical History Past Medical History: Yes Cardiovascular: None Respiratory: Asthma, Sleep apnea Neuro: None Endocrine/Autoimmune: None GI: None : Indwelling catheter HEENT: None Psych: None Musculoskeletal: Paraplegia Derm: None - Past Surgical History Past Surgical History: Yes HEENT: Tonsil/Adenoidectomy - Present Medications Home Medications: Ambulatory Orders Medication Instructions Recorded Confirmed Docusate Sodium 250Mg Capsule 250 mg PO DAILY PRN 06/03/16 04/07/17 [Colace 250Mg Capsule] Na Phos,M-B/Na Phos,Di-Ba [Enema] 133 mg [place] DAILY 06/03/16 04/07/17 Naproxen 500 mg PO BID PRN 06/03/16 04/07/17 Senna [Senokot] 8.6 mg PO DAILY PRN 06/03/16 04/07/17 Albuterol Sulf [Ventolin Hfa 2 puffs INH DAILY PRN 07/16/16 04/07/17 Inhaler] Psyllium [Metamucil] 1 packet PO DAILY PRN 03/06/17 04/07/17 Levofloxacin [Levaquin] 750 mg PO DAILY #4 tablet 04/02/17 04/07/17 Ondansetron Odt [Zofran] 4 mg TL Q6H PRN #20 tablet 04/02/17 04/07/17 Mupirocin 1 applic TP TID #15 oint...g. 04/03/17 04/07/17 Sulfamethox/Trimeth 800/160 1 each PO BID #14 tablet 04/03/17 04/07/17 [Bactrim Ds 800/160] - Allergies Allergies/Adverse Reactions: Allergies Allergy/AdvReac Type Severity Reaction Status Date / Time No Known Drug Allergies Allergy Verified 04/07/17 13:08 - Social History Does the pt smoke?: No Smoking Status: Never smoker Does the pt drink ETOH?: No Does the pt have substance abuse?: No - Immunizations Immunizations are current?: Yes - POLST Patient has POLST: No PD ED PE NORMAL - Vitals Vital signs reviewed: Yes - HEENT HEENT: Atraumatic, PERRL - Abdomen Abdomen: Soft, Non tender - Male Male : Other (Improved appearance of small right scrotal abscess, minimal drainage, no cellulitis) - Neuro Neuro: Alert and oriented X 3, Normal speech Results - Vitals Vitals: Vital Signs - 24 hr 04/07/17 13:07 Temperature 36.9 C Heart Rate 92 Respiratory 20 Rate Blood Pressure 145/87 H O2 Saturation 95 Oxygen O2 Source Room air Departure - Departure Disposition: Home, Self Care Clinical Impression: Scrotal abscess, Receiving intravenous antibiotic treatment as outpatient UTI (urinary tract infection) Qualifiers: Urinary tract infection type: catheter-associated UTI Indwelling urinary catheter type: indwelling urethral catheter Encounter type: subsequent encounter Qualified Code(s): T83.511D - Infection and inflammatory reaction due to indwelling urethral catheter, subsequent encounter; N39.0 - Urinary tract infection, site not specified; N39.0 - Urinary tract infection, site not specified Condition: Stable Comments: Return tomorrow and Saturday for repeat gentamicin dosing, sooner if worse or if running a fever.
== END 2017-04-07 15:54 | disposition home or self-care (01) ==
LOC: ED 13:05
DX: N49.2 Inflammatory disorders of scrotum (principal); T83.511D Infection and inflammatory reaction due to indwelling urethral catheter, subsequent encounter; N39.0 Urinary tract infection, site not specified
CPT/HCPCS: 96365; 99282; 99283

== ENCOUNTER 2017-04-08 15:53 | Emergency (ER) | payer MEDICAID ==
--- NOTE | 2017-04-08 16:59 | ED Physician Documentation ---
PD HPI MALE - Stated complaint Stated Complaint: MALE /MEDS - Chief complaint Chief Complaint: General - History obtained from History obtained from: Patient - History of Present Illness Timing - onset: How many days ago (several) Timing - duration: Days Timing - details: Other (He has had IV abx for past 3 days to treat UTI based on urine culture. Also skin sore draining had culture of it as well. He has gotten daily IV Gent at 5-7 mg/kg daily. Here for planned repeat dose. Will try to figure out game plan for further treatments since now weekday and can look at [facility] vs. Home Health vs. other options.) Review of Systems Constitutional: denies: Fever, Chills GI: denies: Nausea, Vomiting PD PAST MEDICAL HISTORY - Past Medical History Cardiovascular: None Respiratory: Asthma, Sleep apnea Neuro: None Endocrine/Autoimmune: None GI: None : Indwelling catheter HEENT: None Psych: None Musculoskeletal: Paraplegia Derm: None - Past Surgical History Past Surgical History: Yes HEENT: Tonsil/Adenoidectomy - Present Medications Home Medications: Ambulatory Orders Medication Instructions Recorded Confirmed Docusate Sodium 250Mg Capsule 250 mg PO DAILY PRN 06/03/16 04/07/17 [Colace 250Mg Capsule] Na Phos,M-B/Na Phos,Di-Ba [Enema] 133 mg [place] DAILY 06/03/16 04/07/17 Naproxen 500 mg PO BID PRN 06/03/16 04/07/17 Senna [Senokot] 8.6 mg PO DAILY PRN 06/03/16 04/07/17 Albuterol Sulf [Ventolin Hfa 2 puffs INH DAILY PRN 07/16/16 04/07/17 Inhaler] Psyllium [Metamucil] 1 packet PO DAILY PRN 03/06/17 04/07/17 Levofloxacin [Levaquin] 750 mg PO DAILY #4 tablet 04/02/17 04/07/17 Ondansetron Odt [Zofran] 4 mg TL Q6H PRN #20 tablet 04/02/17 04/07/17 Mupirocin 1 applic TP TID #15 oint...g. 04/03/17 04/07/17 Sulfamethox/Trimeth 800/160 1 each PO BID #14 tablet 04/03/17 04/07/17 [Bactrim Ds 800/160] - Allergies Allergies/Adverse Reactions: Allergies Allergy/AdvReac Type Severity Reaction Status Date / Time No Known Drug Allergies Allergy Verified 04/08/17 16:01 - Social History Does the pt smoke?: No Smoking Status: Never smoker Does the pt drink ETOH?: No Does the pt have substance abuse?: No - Immunizations Immunizations are current?: Yes - POLST Patient has POLST: No PD ED PE NORMAL - Vitals Vital signs reviewed: Yes - General General: Alert and oriented X 3, No acute distress, Well developed/nourished - Abdomen Abdomen: Soft, Non distended, No organomegaly - Male Male : Other (thomas in place and draining well. right scrotal sore with draining of some clear fluid without purulence. No redness around the site. ) - Derm Derm: Normal color, Warm and dry, No rash Results - Vitals Vitals: Vital Signs - 24 hr 04/08/17 04/08/17 15:58 18:31 Temperature 35.9 C L 36.3 C L Heart Rate 88 88 Respiratory 20 18 Rate Blood Pressure 137/84 H 131/81 H O2 Saturation 95 95 Oxygen O2 Source Room air - Labs Labs: Laboratory Tests 04/08/17 17:50 Sodium 138 Potassium 4.3 Chloride 103 Carbon Dioxide 27 Anion Gap 8.0 BUN 13 Creatinine 0.4 L Estimated GFR (MDRD) 264 Glucose 88 Calcium 8.7 PD MEDICAL DECISION MAKING - ED course Complexity details: reviewed old records (Has gotten daily gentamicin for the last few days. This will be his fourth day. It was chosen as coverage for both bacteria growth on urine and on the scrotal infection. Sensitivities worse slightly better on the skin culture. The gentamicin is also daily dosage available. He did have his Thomas catheter changed after a day on the antibiotics. He is not having any systemic symptoms to suggest sepsis or general infection. Question will be duration and appropriateness of the treatment and I will consult either urology or infectious disease.), considered differential (Here for fourth day of his daily gentamicin. This is been chosen due to convenience of daily dosing and coverage of both germs growing on his urine. The scrotal infection grew a different sensitivity bacteria and had a broader range of sensitivities. I talked with infectious disease regarding duration of the therapy and their opinion. They did suggest the imipenem's may be more appropriate with less side effects but would require every 6 or 8 hour dosing. I talked with the patient about this and that would be very inconvenient for him either at home or returning here. He could potentially require hospitalization. However the infectious disease did say the gentamicin is still appropriate but be careful and watch for side effects of kidney toxicity. The patient's kidney function is quite good at this point and so shared decision with the patient is to continue the gentamicin for now. I did talk with Dr. Berhane Toure who would set up treatment starting tomorrow through the [facility] to make it more easier than through the ER.), d/w [employer] workflow consultant (I talked with infectious disease at the [facility] who said the daily dosing gentamicin can be appropriate given that both germs are sensitive to it. She suggested duration would be 14 days of concern for pyelonephritis but shorter for just urinary tract/bladder. This could potentially be 7-10 days. She did suggest 1 of the imipenem or similar category as an alternative which would have less potential kidney toxicity. However it would be 3 or 4 times a day dosing and might require hospitalization or setting up for home infusions if that were the case.) Departure - Departure Disposition: 01 Home, Self Care Clinical Impression: Scrotal abscess UTI (urinary tract infection) Qualifiers: Urinary tract infection type: catheter-associated UTI Indwelling urinary catheter type: indwelling urethral catheter Encounter type: subsequent encounter Qualified Code(s): T83.511D - Infection and inflammatory reaction due to indwelling urethral catheter, subsequent encounter Condition: Stable Record reviewed to determine appropriate education?: Yes Follow-Up: NANDA NG [Primary Care Provider] - Comments: I talked with Dr. Berhane Toure who is on-call for Dr. Ng. He will order your daily antibiotic through the [facility] clinic, call them early in the morning to see an appointment time during the day. There are extension in the hospital is [phone]. Call the main hospital number and ask for that extension. Follow-up with your primary care in 2-3 days. Discharge Date/Time: 04/08/17 19:41
[2017-04-08] MEDS ORDERED: GENTAMICIN IV STA (17:11)
[2017-04-08] MEDS ORDERED: SODIUM CHLORIDE 0.9% IV STA (17:11)
[2017-04-08 18:28] LABS: CALCIUM 8.7 mg/dL (8.5-10.3); CREATININE 0.4 mg/dL (0.6-1.2)
[2017-04-08 18:34] VITALS: BP 131/81
== END 2017-04-08 19:41 | disposition home or self-care (01) ==
LOC: ED 15:53
DX: T83.511D Infection and inflammatory reaction due to indwelling urethral catheter, subsequent encounter (principal); N49.2 Inflammatory disorders of scrotum; J45.909 Unspecified asthma, uncomplicated; G82.20 Paraplegia, unspecified
CPT/HCPCS: 36415; 80048; 96365; 99283; 99284

== ENCOUNTER 2017-09-13 23:27 | Outpatient (CLI) | payer MEDICARE | END 2017-09-13 23:28 | disposition critical access hospital (66) | LOC: EMS 23:27 | PROVIDERS: ATTEND Surgery | DX: R58 Hemorrhage, not elsewhere classified (principal) | CPT/HCPCS: A0425; A0429 ==

== ENCOUNTER 2017-09-13 23:35 | Emergency (ER) | payer MEDICARE ==
--- NOTE | 2017-09-13 23:51 | ED Physician Documentation ---
PD HPI MALE - Stated complaint Stated Complaint: MALE - Chief complaint Chief Complaint: General - History obtained from History obtained from: Patient, Family - History of Present Illness Timing - onset: How many days ago (2-3) Timing - duration: Days Timing - details: Gradual onset Pain level max: 0 Pain level now: 0 Associated symptoms: Hematuria PD HPI MALE CONTRIB FACTORS: Indwelling catheter Recently seen: Not recently seen - Additional information Additional information: paraplegic with indwelling thomas catheter, has had hematuria x 2-3 days which became worse this evening. family says there might have been some traction on the catheter a few days ago when they were moving him to change his clothes. catheter was last changed 2 weeks ago. Review of Systems Constitutional: denies: Fever, Chills, Sweats GI: denies: Abdominal Pain, Nausea, Vomiting, Constipation, Diarrhea : reports: Hematuria Musculoskeletal: denies: Back pain PD PAST MEDICAL HISTORY - Past Medical History Cardiovascular: None Respiratory: Asthma, Sleep apnea Endocrine/Autoimmune: None GI: None : Indwelling catheter HEENT: None Psych: None Musculoskeletal: Paraplegia Derm: None - Past Surgical History Past Surgical History: Yes HEENT: Tonsil/Adenoidectomy - Present Medications Home Medications: Ambulatory Orders Medication Instructions Recorded Confirmed Docusate Sodium 250Mg Capsule 250 mg PO DAILY PRN 06/03/16 04/09/17 [Colace 250Mg Capsule] Na Phos,M-B/Na Phos,Di-Ba [Enema] 133 mg [place] DAILY 06/03/16 04/09/17 Naproxen 500 mg PO BID PRN 06/03/16 04/09/17 Senna [Senokot] 8.6 mg PO DAILY PRN 06/03/16 04/09/17 Albuterol Sulf [Ventolin Hfa 2 puffs INH DAILY PRN 07/16/16 04/09/17 Inhaler] Psyllium [Metamucil] 1 packet PO DAILY PRN 03/06/17 04/09/17 Ondansetron Odt [Zofran] 4 mg TL Q6H PRN #20 tablet 04/02/17 04/09/17 Mupirocin 1 applic TP TID #15 oint...g. 04/03/17 04/09/17 Sulfamethox/Trimeth 800/160 1 each PO BID #14 tablet 04/03/17 04/09/17 [Bactrim Ds 800/160] Ciprofloxacin HCl [Cipro] 500 mg PO BID #13 tablet 09/14/17 - Allergies Allergies/Adverse Reactions: Allergies Allergy/AdvReac Type Severity Reaction Status Date / Time No Known Drug Allergies Allergy Verified 09/13/17 23:43 - Social History Does the pt smoke?: No Smoking Status: Never smoker Does the pt drink ETOH?: No Does the pt have substance abuse?: No - Immunizations Immunizations are current?: Yes - POLST Patient has POLST: No PD ED PE NORMAL - Vitals Vital signs reviewed: Yes - General General: Alert and oriented X 3, No acute distress, Other (obese) - HEENT HEENT: Moist mucous membranes - Cardiac Cardiac: RRR, No murmur - Respiratory Respiratory: No respiratory distress, Clear bilaterally - Abdomen Abdomen: Soft, Non tender, Non distended PD ED PE EXPANDED - Extremities Extremities: Pedal edema bilateral Results - Vitals Vitals: Oxygen O2 Source Room air - Labs Labs: Microbiology 09/13/17 23:50 Urine Culture - Preliminary Urine,Clean Catch Escherichia Coli Laboratory Tests 09/13/17 23:50 Urine Color YELLOW Urine Clarity HAZY Urine pH 6.5 Ur Specific [place] <=1.005 Urine Protein NEGATIVE Urine Glucose (UA) NEGATIVE Urine Ketones NEGATIVE Urine Occult Blood LARGE H Urine Nitrite POSITIVE H Urine Bilirubin NEGATIVE Urine Urobilinogen 0.2 (NORMAL) Ur Leukocyte Esterase LARGE H Urine RBC 11-25 H Urine WBC 11-25 H Urine WBC Clumps PRESENT Ur Squamous Epith Cells FEW Squamous Urine Bacteria Moderate H Ur Microscopic Review INDICATED Urine Culture Comments INDICATED PD MEDICAL DECISION MAKING - ED course Complexity details: reviewed old records, reviewed results, re-evaluated patient , considered differential, d/w patient, d/w family ED course: on arrival, urine in catheter bag appeared to be tea-colored, although subsequent UO (bag emptied for UA) appeared clear yellow. patient has no sensation at and below approximately T10 level. I performed bedside US and this demonstrated catheter balloon inflated and in appropriate position. Factors considered in tonights plan include: - UA c/w UTI, although previous UAs available on [facility] show similar results on all previous samples (limited to results available through [facility]) - urine cultures in the past have grown same organism, which was initially sensitive to some PO medications including Cipro, but more recently became resistant to all PO options tested and only sensitive to some IV medications such as gentamycin - patient and family report that he has been hospitalized with high fevers attributed to UTI that had manifested only as hematuria, but that he has been told he has also been treated, at times, unnecessarily for infection. This might be due to the potential of previous culture results representing colonization and not actual infection. - Patient cannot utilize symptoms of UTI as guideline for therapeutic options due to his lack of sensation below T10 After discussion of these factors with patient, I recommended Cipro rx. It is possible that the hematuria represents a result of traction on the catheter, and UA results might reflect chronic findings including colonization. Per family and patient, gross hematuria is not typical for this patient, and this has been the initial and only manifestation of UTI in the past which eventually caused high fevers. Patient understands and agrees with my recommendation. - Sepsis Event Vital Signs: Oxygen O2 Source Room air Departure - Departure Disposition: 01 Home, Self Care Clinical Impression: Paraplegia Hematuria Qualifiers: Hematuria type: gross Qualified Code(s): R31.0 - Gross hematuria Condition: Good Instructions: ED Hematuria Follow-Up: NANDA ORTEGA [Primary Care Provider] - Prescriptions: Ciprofloxacin HCl [Cipro] 500 mg PO BID #13 tablet Discharge Date/Time: 09/14/17 01:27
[2017-09-14] LABS: BILIRUBIN,URINE NEGATIVE (NEGATIVE); GLUCOSE, URINE (UA) NEGATIVE (NEGATIVE); KETONES,URINE (UA) NEGATIVE (NEGATIVE); LEUKOCYTE ESTERASE, URINE LARGE (NEGATIVE); NITRITE,URINE POSITIVE (NEGATIVE); OCCULT BLOOD,URINE LARGE (NEGATIVE); PH,URINE 6.5 PH (5.0-7.5); PROTEIN,URINE NEGATIVE (NEGATIVE); UROBILINOGEN,URINE 0.2 (NORMAL) E.U./dL (NORMAL)
[2017-09-14 00:03] LABS: CLARITY,URINE HAZY (CLEAR)
[2017-09-14 00:07] LABS: BACTERIA,URINE Moderate /HPF (None Seen); SQUAMOUS EPITHELIAL CELL,UR FEW Squamous (<= Few); WBC CLUMPS,URINE PRESENT
[2017-09-14] MEDS ORDERED: CIPROFLOXACIN 250 MG TABLET PO STA (01:08)
[2017-09-14 01:22] VITALS: BP 140/85
== END 2017-09-14 01:27 | disposition home or self-care (01) ==
LOC: EDUNIT# → ED 23:35
DX: G82.20 Paraplegia, unspecified (principal); R31.0 Gross hematuria; Z96.0 Presence of urogenital implants
CPT/HCPCS: 81001; 87086; 87181; 99283; A9270; 81003

== ENCOUNTER 2017-09-14 01:28 | Outpatient (CLI) | payer MEDICARE | END 2017-09-14 01:29 | disposition home or self-care (01) | LOC: EMS 01:28 | PROVIDERS: ATTEND Surgery | DX: R58 Hemorrhage, not elsewhere classified (principal); G82.20 Paraplegia, unspecified | CPT/HCPCS: A0425; A0428 ==

== ENCOUNTER 2018-01-03 08:23 | Outpatient (CLI) | payer MEDICARE, MEDICAID | END 2018-01-03 08:24 | disposition critical access hospital (66) | LOC: EMS 08:23 | PROVIDERS: ATTEND Surgery | DX: N50.89 Other specified disorders of the male genital organs (principal); R31.9 Hematuria, unspecified | CPT/HCPCS: A0425; A0429 ==

== ENCOUNTER 2018-01-03 08:29 | Emergency (ER) | payer MEDICARE, MEDICAID ==
[2018-01-03] MEDS ORDERED: SODIUM CHLORIDE 0.9% 1,000 ML IV ONE (08:50)
[2018-01-03] MEDS ORDERED: KETOROLAC 60 MG/2 ML VIAL IVP STA (08:50)
[2018-01-03 08:55] LABS: BILIRUBIN,URINE NEGATIVE (NEGATIVE); GLUCOSE, URINE (UA) NEGATIVE (NEGATIVE); KETONES,URINE (UA) NEGATIVE (NEGATIVE); LEUKOCYTE ESTERASE, URINE MODERATE (NEGATIVE); NITRITE,URINE NEGATIVE (NEGATIVE); OCCULT BLOOD,URINE LARGE (NEGATIVE); PROTEIN,URINE 100 mg/dL (NEGATIVE); UROBILINOGEN,URINE 0.2 (NORMAL) E.U./dL (NORMAL)
[2018-01-03 08:56] LABS: CLARITY,URINE CLOUDY (CLEAR)
--- NOTE | 2018-01-03 08:58 | ED Physician Documentation ---
History of Present Illness - Stated complaint Stated Complaint: BLOOD IN URINE - Chief complaint Chief Complaint: General - Additonal information Additional information: 27-year-old male with a history of hemiplegia presents to the emergency department with reports of hematuria and testicular swelling and redness. The patient is insensate from his bellybutton down and has no motor function. The patient has a chronic indwelling Page catheter. The patient's home health provider saw him today and noticed the blood in the urine and noticed that his right testicle was swollen and red. No reports of fevers. According to the home health provider the testicle was normal yesterday. No triggering factors. No relieving factors. No other associated symptoms. On a separate note the patient does report a cough for the past week but denies shortness of breath or chest pain. Review of Systems Constitutional: denies: Fever, Chills Eyes: denies: Discharge Ears: denies: Ear pain Nose: denies: Congestion Throat: denies: Sore throat Cardiac: denies: Chest pain / pressure Respiratory: reports: Cough. denies: Dyspnea, Wheezing GI: denies: Abdominal Pain : reports: Hematuria Musculoskeletal: denies: Extremity pain Neurologic: denies: Altered mental status, Head injury PD PAST MEDICAL HISTORY - Past Medical History Cardiovascular: None Respiratory: Asthma, Sleep apnea Endocrine/Autoimmune: None GI: None : Indwelling catheter HEENT: None Psych: None Musculoskeletal: Paraplegia Derm: None - Past Surgical History Past Surgical History: Yes HEENT: Tonsil/Adenoidectomy - Present Medications Home Medications: Ambulatory Orders Medication Instructions Recorded Confirmed Docusate Sodium 250Mg Capsule 250 mg PO DAILY PRN 06/03/16 04/09/17 [Colace 250Mg Capsule] Na Phos,M-B/Na Phos,Di-Ba [Enema] 133 mg [place] DAILY 06/03/16 04/09/17 Naproxen 500 mg PO BID PRN 06/03/16 04/09/17 Senna [Senokot] 8.6 mg PO DAILY PRN 06/03/16 04/09/17 Albuterol Sulf [Ventolin Hfa 2 puffs INH DAILY PRN 07/16/16 04/09/17 Inhaler] Psyllium [Metamucil] 1 packet PO DAILY PRN 03/06/17 04/09/17 - Allergies Allergies/Adverse Reactions: Allergies Allergy/AdvReac Type Severity Reaction Status Date / Time No Known Drug Allergies Allergy Verified 01/03/18 08:35 - Social History Does the pt smoke?: No Smoking Status: Never smoker Does the pt drink ETOH?: No Does the pt have substance abuse?: No - Immunizations Immunizations are current?: Yes Immunizations: TDAP >10years/unknown - POLST Patient has POLST: No PD ED PE NORMAL - General General: Alert and oriented X 3, No acute distress - HEENT HEENT: Atraumatic, PERRL, EOMI, Ears normal - Neck Neck: Supple, no meningeal sign - Cardiac Cardiac: Strong equal pulses, Other (Regular rhythm with tachycardia) - Respiratory Respiratory: No respiratory distress, Clear bilaterally - Abdomen Abdomen: Soft, Non tender - Male Male : Other (The patient has an indwelling Page catheter, the patient has significant right testicular swelling and there is erythema of the scrotal wall. There is no signs of extension in the perineum) - Extremities Extremities: No deformity. No: No edema (The patient has chronic bilateral lower extremity muscle wasting and edema) - Neuro Neuro: Alert and oriented X 3, Normal speech - Psych Psych: Normal affect Results - Vitals Vitals: Vital Signs - 24 hr 01/03/18 01/03/18 01/03/18 08:30 10:56 12:51 Temperature 36.1 C L Heart Rate 125 H 108 H 114 H Respiratory 16 20 24 Rate Blood Pressure 156/99 H 139/73 H 124/70 O2 Saturation 96 95 96 Oxygen O2 Source Room air - Labs Labs: Laboratory Tests 01/03/18 01/03/18 01/03/18 08:50 10:00 10:00 WBC 15.0 H RBC 4.70 Hgb 12.5 L Hct 38.0 L MCV 80.8 MCH 26.6 L MCHC 32.8 RDW 15.5 H Plt Count 389 MPV 7.5 Neut # (Auto) 11.1 H Lymph # (Auto) 2.8 [place] # (Auto) 0.7 Eos # (Auto) 0.2 Baso # (Auto) 0.2 H Absolute Nucleated RBC 0.00 Nucleated RBC % 0.0 Sodium Potassium Chloride Carbon Dioxide Anion Gap BUN Creatinine Estimated GFR (MDRD) Glucose Lactic Acid 1.0 Calcium Total Bilirubin AST ALT Alkaline Phosphatase Total Protein Albumin Globulin Albumin/Globulin Ratio Lipase Urine Color LT RED Urine Clarity CLOUDY Urine pH 7.0 Ur Specific [place] 1.015 Urine Protein 100 H Urine Glucose (UA) NEGATIVE Urine Ketones NEGATIVE Urine Occult Blood LARGE H Urine Nitrite NEGATIVE Urine Bilirubin NEGATIVE Urine Urobilinogen 0.2 (NORMAL) Ur Leukocyte Esterase MODERATE H Urine RBC TNTC H Urine WBC >25 H Urine WBC Clumps PRESENT Ur Squamous Epith Cells FEW Squamous Urine Bacteria Moderate H Ur Microscopic Review INDICATED Urine Culture Comments INDICATED 01/03/18 10:30 WBC RBC Hgb Hct MCV MCH MCHC RDW Plt Count MPV Neut # (Auto) Lymph # (Auto) [place] # (Auto) Eos # (Auto) Baso # (Auto) Absolute Nucleated RBC Nucleated RBC % Sodium 134 L Potassium 3.6 Chloride 99 L Carbon Dioxide 26 Anion Gap 9.0 BUN 26 H Creatinine 0.4 L Estimated GFR (MDRD) 262 Glucose 103 H Lactic Acid Calcium 8.7 Total Bilirubin 0.9 AST 18 ALT 30 Alkaline Phosphatase 76 Total Protein 8.0 Albumin 3.5 Globulin 4.5 H Albumin/Globulin Ratio 0.8 L Lipase 21 L Urine Color Urine Clarity Urine pH Ur Specific [place] Urine Protein Urine Glucose (UA) Urine Ketones Urine Occult Blood Urine Nitrite Urine Bilirubin Urine Urobilinogen Ur Leukocyte Esterase Urine RBC Urine WBC Urine WBC Clumps Ur Squamous Epith Cells Urine Bacteria Ur Microscopic Review Urine Culture Comments - Rads (name of study) CT Pelvis Radiology: Final report received (IMPRESSION: 1. Extensive scrotal swelling with abscesses along the superomedial aspect of the right scrotum and along the posterior aspect of the penis, immediately anterior to the prostate. Small focus of soft tissue gas present adjacent to the Page catheter balloon. No other foci of soft tissue gas demonstrated. However, necrotizing infection or Alberta's gangrene cannot be excluded. 2. Balloon of the Page catheter appears to be inflated in the penile urethra. Small amount of adjacent soft tissue gas is demonstrated, potentially gas introduced from catheter insertion or sequela of infection3. Thickening of the soft tissues of the external anal sphincter with poor visualization of the internal sphincter. Findings may be secondary to chronic irritation/inflammation related to reported paraplegia. 4. Hepatic steatosis. 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 The case is discussed with acute care surgery from [facility] who accepts the patient for transfer to the emergency department for further workup and management of the patient's acute issue. The findings and plan were discussed with the patient Departure - Departure Disposition: 02 Transfer Acute Care Hosp Clinical Impression: Scrotal abscess, Scrotal edema
[2018-01-03 09:13] LABS: BACTERIA,URINE Moderate /HPF (None Seen); RBC,URINE TNTC /HPF (0-5); SQUAMOUS EPITHELIAL CELL,UR FEW Squamous (<= Few); WBC CLUMPS,URINE PRESENT
--- NOTE | 2018-01-03 09:32 | XRAY Report ---
Reason: cough Procedure Date: 01/03/2018 Accession Number: [id number] / [id number] Procedure: XR - Chest 2 View X-Ray CPT Code: 64944 FULL RESULT: EXAM: CHEST RADIOGRAPHY EXAM DATE: 01/03/2018 09:12 AM. CLINICAL HISTORY: Cough. COMPARISON: None. TECHNIQUE: 2 views. FINDINGS: Lungs/Pleura: On the lateral view there is infiltrate in the right middle lobe or lingula not visible on frontal view. No pleural effusion. No pneumothorax. Normal volumes. Eventration posterior left hemidiaphragm. Mediastinum: Heart and mediastinal contours are unremarkable. Other: Marked kyphotic curve thoracolumbar junction IMPRESSION: Infiltrate in right middle lobe or lingula RADIA
--- NOTE | 2018-01-03 10:02 | Ultrasound Report ---
Reason: pain and swelling Procedure Date: 01/03/2018 Accession Number: [id number] / [id number] Procedure: US - Testicle w/Doppler CPT Code: FULL RESULT: EXAM: SCROTAL ULTRASOUND EXAM DATE: 01/03/2018 09:36 AM. CLINICAL HISTORY: Pain and swelling. COMPARISON: None. TECHNIQUE: Real-time scanning was performed with static images obtained. Color-flow images were utilized. FINDINGS: Right: Testis: 3.1 x 1.8 x 2.2 cm. Normal size and echotexture. No mass, calcification, or abnormal blood flow. Epididymis: 1.0 x 0.7 x 1.2 cm. Normal size and echotexture. No mass or abnormal blood flow. Hydrocele: Trace. Varicocele: None. Left: Testis: 2.9 x 1.5 x 1.7 cm. Normal size and echotexture. No mass, calcification, or abnormal blood flow. Epididymis: 0.9 x 0.9 x 0.9 cm. Normal size and echotexture. No mass or abnormal blood flow. Hydrocele: None. Varicocele: None. IMPRESSION: Trace right hydrocele with demonstrable vascular flow on color and spectral Doppler bilaterally. RADIA
[2018-01-03] MEDS ORDERED: CEFEPIME 2 GM in SODIUM CHLORIDE 0.9% MINIBAG 100 ML IV STA (10:12)
[2018-01-03 10:17] LABS: BASOPHILS # (AUTO) 0.2 10^3/uL (0.0-0.1); BASOPHILS % (AUTO) 1.1 %; EOSINOPHILS # (AUTO) 0.2 10^3/uL (0.0-0.7); EOSINOPHILS % (AUTO) 1.1 %; HGB - HEMOGLOBIN 12.5 g/dL (14.0-18.0); LYMPHOCYTES # (AUTO) 2.8 10^3/uL (1.5-3.5); MEAN CORPUSCULAR HEMOGLOBIN 26.6 pg (27.0-31.0); MEAN CORPUSCULAR HGB CONC 32.8 g/dL (32.0-36.0); MEAN CORPUSCULAR VOLUME 80.8 fL (80.0-94.0); MEAN PLATELET VOLUME 7.5 fL (7.4-11.4); MONOCYTES # (AUTO) 0.7 10^3/uL (0.0-1.0); NEUTROPHILS # (AUTO) 11.1 10^3/uL (1.5-6.6); NEUTROPHILS % (AUTO) 73.8 %; PLT - PLATELET COUNT 389 10^3/uL (130-450); RED CELL DISTRIBUTION WIDTH 15.5 % (12.0-15.0)
[2018-01-03 10:47] LABS: ALBUMIN 3.5 g/dL (3.2-5.5); ALBUMIN/GLOBULIN RATIO 0.8 (1.0-2.2); BILIRUBIN,TOTAL 0.9 mg/dL (0.2-1.0); CALCIUM 8.7 mg/dL (8.5-10.3); CREATININE 0.4 mg/dL (0.6-1.2)
[2018-01-03] MEDS ORDERED: IOPAMIDOL-300 100 ML VIAL ONE (11:17)
--- NOTE | 2018-01-03 13:14 | CT Report ---
Reason: Scrotal inflammation and swelling, redness. Procedure Date: 01/03/2018 Accession Number: [id number] / [id number] Procedure: CT - Pelvis W/ CPT Code: FULL RESULT: EXAM: CT PELVIS EXAM DATE: 01/03/2018 12:30 PM. CLINICAL HISTORY: Scrotal inflammation and swelling, redness. COMPARISONS: Scrotal ultrasound from 01/03/2018, 08/09/2017. TECHNIQUE: Routine helical CT imaging was performed through the pelvis. IV contrast: 80 cc Isovue 300. Enteric contrast: No. Reconstructions: Coronal and sagittal. In accordance with CT protocol optimization, one or more of the following dose reduction techniques were utilized for this exam: automated exposure control, adjustment of mA and/or KV based on patient size, or use of iterative reconstructive technique. FINDINGS: Visualized Abdominal Organs: There is mild diffuse low-attenuation of the liver, compatible with steatosis. Additional focal fat deposition is present along the fissure for the ligamentum teres. Visualized portions of the spleen, pancreas, and bilateral kidneys are unremarkable. Visualized gallbladder and bile ducts are within normal limits. Peritoneal Cavity/Bowel: There appears to be thickening of the region of the external sphincter. A normal internal sphincter is not identified. Remainder of the bowel is unremarkable. No evidence for bowel obstruction or inflammation. Appendix is within normal limits. Pelvic Organs: Urinary bladder is decompressed and demonstrates moderate concentric wall thickening. There is extensive scrotal wall thickening with a lentiform fluid collection in the superomedial aspect of the right scrotum measuring approximately 2.7 x 1.3 x 3.4 cm (series 3, image 83 and series 7, image 22). This is suspicious for abscess. There appears to be an additional fluid collection in the posterior aspect of the penis, measuring approximately 4.5 x 1.7 x 3.6 cm (series 3, image 63 and series 6, image 48). This is suspicious for additional abscess. The balloon of the Page catheter appears to be within the penile portion of the urethra (series 3, image 73). There is a small amount of gas adjacent to the Page balloon (series 3, image 75). No other foci of soft tissue gas demonstrated. Vasculature: No abdominal or iliac artery aneurysm. Bones: There is relatively gracile appearance of the bones, which may indicate sequela of neurologic abnormality, such as paraplegia. Other: There are mildly prominent bilateral inguinal lymph nodes. A right inguinal node measures 12 mm in short axis (series 3, image 62). IMPRESSION: 1. Extensive scrotal swelling with abscesses along the superomedial aspect of the right scrotum and along the posterior aspect of the penis, immediately anterior to the prostate. Small focus of soft tissue gas present adjacent to the Page catheter balloon. No other foci of soft tissue gas demonstrated. However, necrotizing infection or Alberta's gangrene cannot be excluded. 2. Balloon of the Page catheter appears to be inflated in the penile urethra. Small amount of adjacent soft tissue gas is demonstrated, potentially gas introduced from catheter insertion or sequela of infection. 3. Thickening of the soft tissues of the external anal sphincter with poor visualization of the internal sphincter. Findings may be secondary to chronic irritation/inflammation related to reported paraplegia. 4. Hepatic steatosis. RADIA Findings regarding the scrotum, penis, and Page catheter were discussed with Dr. Nathaniel Millan by Dr. Victorino Jacques at 13:12 hrs on 01/03/18.
[2018-01-03] MEDS ORDERED: IOPAMIDOL-300 100 ML VIAL IVP ONE (16:04)
[2018-01-03 17:19] VITALS: BP 120/84
== END 2018-01-03 18:30 | disposition short-term general hospital (02) ==
LOC: ED 08:29
DX: N49.2 Inflammatory disorders of scrotum (principal); N50.89 Other specified disorders of the male genital organs; G82.20 Paraplegia, unspecified; Z96.0 Presence of urogenital implants; K76.0 Fatty (change of) liver, not elsewhere classified
CPT/HCPCS: 36415; 71046; 72193; 76870; 80053; 81001; 83605; 83690; 85025; 87040; 87077; 87086; 87181; 93975; 96365; 96375; 99284; Q9967; 81003; 87491; 87591; 99285

== ENCOUNTER 2018-01-13 15:00 | Outpatient (CLI) | payer MEDICARE, MEDICAID ==
[2018-01-13 16:02] LABS: BASOPHILS # (AUTO) 0.1 10^3/uL (0.0-0.1); EOSINOPHILS # (AUTO) 0.5 10^3/uL (0.0-0.7); EOSINOPHILS % (AUTO) 5.1 %; HGB - HEMOGLOBIN 10.9 g/dL (14.0-18.0); LYMPHOCYTES # (AUTO) 2.4 10^3/uL (1.5-3.5); LYMPHOCYTES % (AUTO) 25.9 %; MEAN CORPUSCULAR HEMOGLOBIN 26.1 pg (27.0-31.0); MEAN CORPUSCULAR VOLUME 81.6 fL (80.0-94.0); MEAN PLATELET VOLUME 7.8 fL (7.4-11.4); MONOCYTES # (AUTO) 0.4 10^3/uL (0.0-1.0); MONOCYTES % (AUTO) 3.9 %; NEUTROPHILS % (AUTO) 64.1 %; PLT - PLATELET COUNT 442 10^3/uL (130-450); RED BLOOD COUNT 4.18 10^6/uL (4.70-6.10); RED CELL DISTRIBUTION WIDTH 15.5 % (12.0-15.0); WHITE BLOOD COUNT 9.4 x10^3/uL (4.8-10.8)
[2018-01-13 16:54] LABS: ALBUMIN 2.7 g/dL (3.2-5.5); ALBUMIN/GLOBULIN RATIO 0.7 (1.0-2.2); ALKALINE PHOSPHATASE 70 IU/L (42-121); ALT ALANINE AMINOTRANSFERASE 24 IU/L (10-60); AST ASPARTATE AMINOTRANSFERASE 27 IU/L (10-42); BILIRUBIN,TOTAL 0.5 mg/dL (0.2-1.0); BUN - BLOOD UREA NITROGEN 18 mg/dL (6-20); CALCIUM 8.3 mg/dL (8.5-10.3); CARBON DIOXIDE - CO2 27 mmol/L (21-32); CHLORIDE 103 mmol/L (101-111); CREATININE 0.8 mg/dL (0.6-1.2); GFR - MDRD 118 (>89); GLUCOSE 152 mg/dL (70-100); SODIUM 140 mmol/L (135-145); TOTAL PROTEIN 6.8 g/dL (6.7-8.2); VANCOMYCIN,TROUGH 11.3 ug/mL (10.0-20.0)
== END 2018-01-13 15:01 | disposition home or self-care (01) ==
LOC: LAB.R 15:00
PROVIDERS: ATTEND Internal Medicine Infectious Disease
DX: R78.81 Bacteremia (principal); B95.62 Methicillin resistant Staphylococcus aureus infection as the cause of diseases classified elsewhere
CPT/HCPCS: 36415; 80053; 80202; 85025

== ENCOUNTER 2018-01-20 14:30 | Outpatient (CLI) | payer MEDICARE, MEDICAID ==
[2018-01-20 14:48] LABS: BASOPHILS # (AUTO) 0.1 10^3/uL (0.0-0.1); BASOPHILS % (AUTO) 0.9 %; EOSINOPHILS # (AUTO) 0.3 10^3/uL (0.0-0.7); EOSINOPHILS % (AUTO) 3.7 %; HGB - HEMOGLOBIN 11.8 g/dL (14.0-18.0); LYMPHOCYTES # (AUTO) 2.3 10^3/uL (1.5-3.5); LYMPHOCYTES % (AUTO) 30.1 %; MEAN CORPUSCULAR HEMOGLOBIN 26.2 pg (27.0-31.0); MEAN CORPUSCULAR HGB CONC 32.7 g/dL (32.0-36.0); MEAN PLATELET VOLUME 7.2 fL (7.4-11.4); MONOCYTES # (AUTO) 0.4 10^3/uL (0.0-1.0); MONOCYTES % (AUTO) 5.4 %; NEUTROPHILS # (AUTO) 4.7 10^3/uL (1.5-6.6); NEUTROPHILS % (AUTO) 59.9 %; PLT - PLATELET COUNT 400 10^3/uL (130-450); RED BLOOD COUNT 4.52 10^6/uL (4.70-6.10); RED CELL DISTRIBUTION WIDTH 15.7 % (12.0-15.0); WHITE BLOOD COUNT 7.8 x10^3/uL (4.8-10.8)
[2018-01-20 15:53] LABS: ALBUMIN 3.3 g/dL (3.2-5.5); ALBUMIN/GLOBULIN RATIO 0.9 (1.0-2.2); ALKALINE PHOSPHATASE 79 IU/L (42-121); ALT ALANINE AMINOTRANSFERASE 36 IU/L (10-60); AST ASPARTATE AMINOTRANSFERASE 33 IU/L (10-42); BILIRUBIN,TOTAL 0.4 mg/dL (0.2-1.0); BUN - BLOOD UREA NITROGEN 20 mg/dL (6-20); CALCIUM 8.6 mg/dL (8.5-10.3); CARBON DIOXIDE - CO2 29 mmol/L (21-32); CHLORIDE 104 mmol/L (101-111); CREATININE 0.7 mg/dL (0.6-1.2); GFR - MDRD 137 (>89); GLUCOSE 132 mg/dL (70-100); SODIUM 139 mmol/L (135-145); VANCOMYCIN,TROUGH 14.3 ug/mL (10.0-20.0)
== END 2018-01-20 14:31 | disposition home or self-care (01) ==
LOC: LAB.R 14:30
PROVIDERS: ATTEND Internal Medicine Infectious Disease
DX: B95.62 Methicillin resistant Staphylococcus aureus infection as the cause of diseases classified elsewhere (principal)
CPT/HCPCS: 80053; 80202; 85025

== ENCOUNTER 2018-02-23 00:25 | Outpatient (CLI) | payer MEDICARE, MEDICAID | END 2018-02-23 00:26 | disposition critical access hospital (66) | LOC: EMS 00:25 | PROVIDERS: ATTEND Surgery | DX: R39.9 Unspecified symptoms and signs involving the genitourinary system (principal); N50.89 Other specified disorders of the male genital organs; R68.83 Chills (without fever) | CPT/HCPCS: A0425; A0429 ==

== ENCOUNTER 2018-02-23 00:34 | Emergency (ER) | payer MEDICARE, MEDICAID ==
[2018-02-23 00:59] LABS: BILIRUBIN,URINE NEGATIVE (NEGATIVE); GLUCOSE, URINE (UA) NEGATIVE (NEGATIVE); KETONES,URINE (UA) NEGATIVE (NEGATIVE); LEUKOCYTE ESTERASE, URINE LARGE (NEGATIVE); NITRITE,URINE POSITIVE (NEGATIVE); OCCULT BLOOD,URINE LARGE (NEGATIVE); PROTEIN,URINE 100 mg/dL (NEGATIVE); UROBILINOGEN,URINE 0.2 (NORMAL) E.U./dL (NORMAL)
[2018-02-23 01:02] LABS: CLARITY,URINE SL. CLOUDY (CLEAR)
[2018-02-23 01:06] LABS: RBC,URINE TNTC /HPF (0-5); SQUAMOUS EPITHELIAL CELL,UR NONE SEEN (<= Few)
[2018-02-23 01:07] LABS: BACTERIA,URINE Moderate /HPF (None Seen)
--- NOTE | 2018-02-23 01:33 | ED Physician Documentation ---
PD HPI MALE - Stated complaint Stated Complaint: CHILLS - Chief complaint Chief Complaint: UTI - History obtained from History obtained from: Patient - History of Present Illness Timing - onset: Today Pain level now: 0 Associated symptoms: Indwelling catheter - Additional information Additional information: c/o right hemiscrotal swelling, erythema noticed earlier today. he is paraplegic, has indwelling thomas. patient says his sxrotal erythema and swelling typically heralds UTI. Review of Systems Constitutional: reports: Reviewed and negative GI: denies: Abdominal Pain, Nausea, Vomiting : denies: Hematuria, Testicular pain PD PAST MEDICAL HISTORY - Past Medical History Past Medical History: Yes Cardiovascular: None Respiratory: Asthma, Sleep apnea Endocrine/Autoimmune: None GI: None : Indwelling catheter HEENT: None Psych: None Musculoskeletal: Paraplegia Derm: None - Past Surgical History Past Surgical History: Yes HEENT: Tonsil/Adenoidectomy - Present Medications Home Medications: Ambulatory Orders Medication Instructions Recorded Confirmed Docusate Sodium 250Mg Capsule 250 mg PO DAILY PRN 06/03/16 04/09/17 [Colace 250Mg Capsule] Na Phos,M-B/Na Phos,Di-Ba [Enema] 133 mg [place] DAILY 06/03/16 04/09/17 Naproxen 500 mg PO BID PRN 06/03/16 04/09/17 Senna [Senokot] 8.6 mg PO DAILY PRN 06/03/16 04/09/17 Albuterol Sulf [Ventolin Hfa 2 puffs INH DAILY PRN 07/16/16 04/09/17 Inhaler] Psyllium [Metamucil] 1 packet PO DAILY PRN 03/06/17 04/09/17 Ciprofloxacin HCl [Cipro] 500 mg PO BID #19 tablet 02/23/18 - Allergies Allergies/Adverse Reactions: Allergies Allergy/AdvReac Type Severity Reaction Status Date / Time No Known Drug Allergies Allergy Verified 02/23/18 00:44 - Social History Does the pt smoke?: No Smoking Status: Never smoker Does the pt drink ETOH?: No Does the pt have substance abuse?: No - Immunizations Immunizations are current?: Yes Immunizations: TDAP >10years/unknown - POLST Patient has POLST: No PD ED PE NORMAL - Vitals Vital signs reviewed: Yes - General General: Alert and oriented X 3, No acute distress, Well developed/nourished - Abdomen Abdomen: Soft, Non tender PD ED PE EXPANDED - Male Male : Testes descended yung, Other (swelling and erythema right hemiscrotum. no crepitus/[employer], no ulceration, no necrotic tissue). No: Tenderness Results - Vitals Vitals: Vital Signs - 24 hr 02/23/18 02/23/18 00:35 02:17 Temperature 37.6 C H 36.5 C Heart Rate 103 H 99 Respiratory 18 16 Rate Blood Pressure 135/80 H 147/87 H O2 Saturation 99 97 Oxygen O2 Source Room air - Labs Labs: Laboratory Tests 02/23/18 00:53 Urine Color RED/BLOODY Urine Clarity [place]. CLOUDY Urine pH 7.0 Ur Specific [place] 1.010 Urine Protein 100 H Urine Glucose (UA) NEGATIVE Urine Ketones NEGATIVE Urine Occult Blood LARGE H Urine Nitrite POSITIVE H Urine Bilirubin NEGATIVE Urine Urobilinogen 0.2 (NORMAL) Ur Leukocyte Esterase LARGE H Urine RBC TNTC H Urine WBC 11-25 H Ur Squamous Epith Cells NONE SEEN Urine Bacteria Moderate H Ur Microscopic Review INDICATED Urine Culture Comments INDICATED PD MEDICAL DECISION MAKING - ED course Complexity details: reviewed old records, reviewed results, considered differential, d/w patient Departure - Departure Disposition: 01 Home, Self Care Clinical Impression: UTI (urinary tract infection), Scrotal edema Condition: Good Instructions: ED UTI Cystitis Male Follow-Up: NANDA ORTEGA [Primary Care Provider] - (Follow up with your dotor; call to arrange for next available appointment. ) Prescriptions: Ciprofloxacin HCl [Cipro] 500 mg PO BID #19 tablet Discharge Date/Time: 02/23/18 02:50
[2018-02-23] MEDS ORDERED: CIPROFLOXACIN 250 MG TABLET PO STA (01:55)
[2018-02-23 02:18] VITALS: BP 147/87
== END 2018-02-23 02:50 | disposition home or self-care (01) ==
LOC: EDUNIT# → ED 00:34
DX: N39.0 Urinary tract infection, site not specified (principal); N50.89 Other specified disorders of the male genital organs; Z96.0 Presence of urogenital implants; G82.20 Paraplegia, unspecified
CPT/HCPCS: 81001; 87077; 87086; 87181; 99283; A9270; 81003

== ENCOUNTER → 2018-02-23 | Outpatient (CLI) | payer MEDICARE, MEDICAID | LOC: EMS 02:58 | PROVIDERS: ATTEND Surgery | DX: G82.20 Paraplegia, unspecified (principal) | CPT/HCPCS: A0425; A0428 ==

== ENCOUNTER 2018-03-28 03:35 | Outpatient (CLI) | payer MEDICARE, MEDICAID | END 2018-03-28 03:36 | disposition home or self-care (01) | LOC: EMS 03:35 | PROVIDERS: ATTEND Surgery | DX: R31.9 Hematuria, unspecified (principal); G82.20 Paraplegia, unspecified; Z87.440 Personal history of urinary (tract) infections ==

== ENCOUNTER 2018-03-28 04:17 | Emergency (ER) | payer MEDICARE, MEDICAID ==
--- NOTE | 2018-03-28 04:44 | ED Physician Documentation ---
PD HPI MALE - Stated complaint Stated Complaint: BLOOD IN URINE - Chief complaint Chief Complaint: UTI - History obtained from History obtained from: Patient, EMS - History of Present Illness Timing - onset: How many days ago (1.5) Timing - duration: Days (1.5) Timing - details: Gradual onset Pain level max: 0 Pain level now: 0 Associated symptoms: Indwelling catheter PD HPI MALE CONTRIB FACTORS: Indwelling catheter Similar symptoms before: Diagnosis (UTI) Recently seen: Not recently seen - Additional information Additional information: 27-year-old male, quadriplegic who has a chronic indwelling Page catheter changed 1 week ago. Noticed blood in the urine 36 hours ago and has had continued blood so came for evaluation. No fevers. No vomiting. Review of Systems Constitutional: denies: Fever, Chills GI: denies: Vomiting Skin: denies: Rash Musculoskeletal: denies: Neck pain, Back pain Neurologic: denies: Headache PD PAST MEDICAL HISTORY - Past Medical History Past Medical History: Yes Cardiovascular: None Respiratory: Asthma, Sleep apnea Endocrine/Autoimmune: None GI: None : Indwelling catheter HEENT: None Psych: None Musculoskeletal: Paraplegia Derm: None - Past Surgical History Past Surgical History: Yes HEENT: Tonsil/Adenoidectomy - Present Medications Home Medications: Ambulatory Orders Medication Instructions Recorded Confirmed Docusate Sodium 250Mg Capsule 250 mg PO DAILY PRN 06/03/16 04/09/17 [Colace 250Mg Capsule] Naproxen 500 mg PO BID PRN 06/03/16 04/09/17 Senna [Senokot] 8.6 mg PO DAILY PRN 06/03/16 04/09/17 Albuterol Sulf [Ventolin Hfa 2 puffs INH DAILY PRN 07/16/16 04/09/17 Inhaler] Psyllium [Metamucil] 1 packet PO DAILY PRN 03/06/17 04/09/17 Levofloxacin [Levaquin] 750 mg PO DAILY #4 tablet 03/28/18 - Allergies Allergies/Adverse Reactions: Allergies Allergy/AdvReac Type Severity Reaction Status Date / Time No Known Drug Allergies Allergy Verified 03/28/18 04:26 - Social History Does the pt smoke?: No Smoking Status: Never smoker Does the pt drink ETOH?: No Does the pt have substance abuse?: No - Immunizations Immunizations are current?: Yes Immunizations: TDAP >10years/unknown - POLST Patient has POLST: No PD ED PE NORMAL - Vitals Vital signs reviewed: Yes - General General: Alert and oriented X 3, No acute distress - HEENT HEENT: Moist mucous membranes - Neck Neck: Supple, no meningeal sign - Cardiac Cardiac: RRR - Respiratory Respiratory: No respiratory distress, Clear bilaterally - Abdomen Abdomen: Soft, Non tender, Non distended - Back Back: No CVA TTP, No spinal TTP - Derm Derm: Warm and dry - Neuro Neuro: Alert and oriented X 3 Results - Vitals Vitals: Vital Signs - 24 hr 03/28/18 04:20 Temperature 36.7 C Heart Rate 103 H Respiratory 18 Rate Blood Pressure 142/76 H O2 Saturation 93 Oxygen O2 Source Room air - Labs Labs: Laboratory Tests 03/28/18 04:30 Urine Color LT RED Urine Clarity HAZY Urine pH 6.5 Ur Specific [place] <=1.005 Urine Protein 100 H Urine Glucose (UA) NEGATIVE Urine Ketones NEGATIVE Urine Occult Blood LARGE H Urine Nitrite POSITIVE H Urine Bilirubin NEGATIVE Urine Urobilinogen 0.2 (NORMAL) Ur Leukocyte Esterase LARGE H Urine RBC TNTC H Urine WBC >25 H Ur Squamous Epith Cells FEW Squamous Urine Bacteria Few Ur Microscopic Review INDICATED Urine Culture Comments INDICATED PD MEDICAL DECISION MAKING - ED course Complexity details: reviewed old records, reviewed results, re-evaluated patient, considered differential, d/w patient ED course: 27-year-old male who presents to the emergency department with a complicated UTI and his Page catheter with hematuria. Reviewed past sensitivities and will place on high-dose Levaquin. We will have him follow-up with his doctor for further care. He is very well-appearing, nontoxic. Afebrile. Patient is normally tachycardic in the emergency department. No evidence of sepsis. Patient counseled regarding signs and symptoms for which I believe and urgent re-evaluation would be necessary. Patient with good understanding of and agreement to plan and is comfortable going home at this time This document was made in part using voice recognition software. While efforts are made to proofread this document, sound alike and grammatical errors may occur. Departure - Departure Disposition: 01 Home, Self Care Clinical Impression: UTI (urinary tract infection) Qualifiers: Urinary tract infection type: acute cystitis Hematuria presence: with hematuria Qualified Code(s): N30.01 - Acute cystitis with hematuria Hematuria Qualifiers: Hematuria type: gross Qualified Code(s): R31.0 - Gross hematuria Condition: Good Instructions: ED UTI Cystitis Male Follow-Up: NANDA ORTEGA [Primary Care Provider] - Within 1 week Prescriptions: Levofloxacin [Levaquin] 750 mg PO DAILY #4 tablet Comments: Take all antibiotics until gone. Return if you worsen. Follow-up with your doctor for further evaluation
[2018-03-28 04:52] LABS: BILIRUBIN,URINE NEGATIVE (NEGATIVE); GLUCOSE, URINE (UA) NEGATIVE (NEGATIVE); KETONES,URINE (UA) NEGATIVE (NEGATIVE); LEUKOCYTE ESTERASE, URINE LARGE (NEGATIVE); NITRITE,URINE POSITIVE (NEGATIVE); OCCULT BLOOD,URINE LARGE (NEGATIVE); PH,URINE 6.5 PH (5.0-7.5); PROTEIN,URINE 100 mg/dL (NEGATIVE); UROBILINOGEN,URINE 0.2 (NORMAL) E.U./dL (NORMAL)
[2018-03-28 05:02] LABS: CLARITY,URINE HAZY (CLEAR)
[2018-03-28 05:03] LABS: BACTERIA,URINE Few /HPF (None Seen); RBC,URINE TNTC /HPF (0-5); SQUAMOUS EPITHELIAL CELL,UR FEW Squamous (<= Few)
[2018-03-28] MEDS ORDERED: levoFLOXacin 250 MG TABLET PO STA (05:11)
[2018-03-28 05:27] VITALS: BP 122/78
== END 2018-03-28 05:45 | disposition home or self-care (01) ==
LOC: EDUNIT# → ED 04:17
DX: N30.01 Acute cystitis with hematuria (principal); Z96.0 Presence of urogenital implants; G82.50 Quadriplegia, unspecified
CPT/HCPCS: 81001; 87077; 87086; 87181; 99283; A9270; 81003

== ENCOUNTER 2018-03-28 05:51 | Outpatient (CLI) | payer MEDICARE, MEDICAID | END 2018-03-28 05:52 | disposition home or self-care (01) | LOC: EMS 05:51 | PROVIDERS: ATTEND Surgery | DX: N39.0 Urinary tract infection, site not specified (principal); G82.20 Paraplegia, unspecified | CPT/HCPCS: A0425; A0428; A0429 ==

== ENCOUNTER 2018-04-01 12:20 | Emergency (ER) | payer MEDICARE, MEDICAID ==
--- NOTE | 2018-04-01 14:00 | XRAY Report ---
Reason: cough Procedure Date: 04/01/2018 Accession Number: [id number] / [id number] Procedure: XR - Chest 1 View X-Ray CPT Code: 20497 FULL RESULT: EXAM: CHEST RADIOGRAPHY EXAM DATE: 04/01/2018 01:41 PM. CLINICAL HISTORY: Cough. COMPARISON: CHEST 2 VIEW 01/03/2018 8:57 AM. TECHNIQUE: 1 view. FINDINGS: Lungs/Pleura: There are low lung volumes with mild bibasilar atelectasis and central bronchovascular crowding. There is some increased density in the left upper lung. Possible nodular opacity in the lateral right lower lung. Mediastinum: Within exam limitations, the cardiomediastinal contour is normal. Other: None. IMPRESSION: 1. Technically limited, hypoventilatory exam. 2. Increased density in the left upper lung could represent infection. 3. Possible nodular opacity in the lateral right midlung versus summation artifact. RADIA
[2018-04-01] MEDS ORDERED: ALBUTEROL NEB 2.5 MG/3 ML INH STA (14:22)
[2018-04-01] MEDS ORDERED: DOXYCYCLINE 100 MG TABLET PO STA (14:23)
[2018-04-01] MEDS ORDERED: DEXAMETHASONE 10 MG/ML VIAL IVP STA (14:23)
--- NOTE | 2018-04-01 14:33 | ED Physician Documentation ---
History of Present Illness - Stated complaint Stated Complaint: COUGH/DIFFICUTLY BREATHING - Chief complaint Chief Complaint: Resp - History obtained from History obtained from: Patient - History of Present Illness Timing: Yesterday Pain level max: 0 Pain level now: 0 - Additonal information Additional information: 27-year-old male, wheelchair-bound presents to the emergency department with cough for the past 2 days. Increased wheezing and dyspnea. States using his inhaler at home and is not helping. States feeling worse. Nothing makes it better or worse Review of Systems Constitutional: denies: Fever, Chills Throat: denies: Sore throat Respiratory: reports: Cough, Wheezing GI: denies: Abdominal Pain, Vomiting, Diarrhea Skin: denies: Rash Musculoskeletal: denies: Neck pain, Back pain Neurologic: denies: Headache PD PAST MEDICAL HISTORY - Past Medical History Past Medical History: Yes Cardiovascular: None Respiratory: Asthma, Pneumonia, Shortness of breath, Sleep apnea, CPAP use Neuro: Migraines Endocrine/Autoimmune: None GI: None : Indwelling catheter HEENT: None Psych: None Musculoskeletal: Paraplegia Derm: None - Past Surgical History Past Surgical History: Yes HEENT: Tonsil/Adenoidectomy - Present Medications Home Medications: Ambulatory Orders Medication Instructions Recorded Confirmed Docusate Sodium 250Mg Capsule 250 mg PO DAILY PRN 06/03/16 04/09/17 [Colace 250Mg Capsule] Naproxen 500 mg PO BID PRN 06/03/16 04/09/17 Senna [Senokot] 8.6 mg PO DAILY PRN 06/03/16 04/09/17 Albuterol Sulf [Ventolin Hfa 2 puffs INH DAILY PRN 07/16/16 04/09/17 Inhaler] Psyllium [Metamucil] 1 packet PO DAILY PRN 03/06/17 04/09/17 Albuterol Sulf [Ventolin Hfa 1 - 2 puffs INH Q4HR PRN #1 inhaler 04/01/18 Inhaler] Doxycycline Hyclate 100 mg PO BID #20 capsule 04/01/18 predniSONE [Deltasone] 10 mg PO [id number] #42 tab 04/01/18 - Allergies Allergies/Adverse Reactions: Allergies Allergy/AdvReac Type Severity Reaction Status Date / Time No Known Drug Allergies Allergy Verified 04/01/18 12:42 - Social History Does the pt smoke?: No Smoking Status: Never smoker Does the pt drink ETOH?: No Does the pt have substance abuse?: No - Immunizations Immunizations are current?: Yes Immunizations: TDAP current <10years - POLST Patient has POLST: No PD ED PE NORMAL - Vitals Vital signs reviewed: Yes - General General: Alert and oriented X 3, No acute distress - HEENT HEENT: Moist mucous membranes - Neck Neck: Supple, no meningeal sign - Cardiac Cardiac: RRR, Strong equal pulses - Respiratory Respiratory: No respiratory distress, Other (Diffuse wheezing bilaterally) - Derm Derm: Warm and dry - Neuro Neuro: Alert and oriented X 3 Results - Vitals Vitals: Vital Signs - 24 hr 04/01/18 04/01/18 04/01/18 12:36 13:20 15:59 Temperature 36.1 C L Heart Rate 138 H 133 H 127 H Respiratory 24 24 24 Rate Blood Pressure 124/68 113/72 116/77 O2 Saturation 86 L 95 97 Oxygen O2 Source Room air - Rads (name of study) cxr Radiology: Prelim report reviewed, EMP read contemporaneously, See rad report (Technically limited, hypoventilatory exam. 2. Increased density in the left upper lung could represent infection. 3. Possible nodular opacity in the lateral right midlung versus summation artifact. ) PD MEDICAL DECISION MAKING - ED course Complexity details: reviewed results, re-evaluated patient, considered differential, d/w patient ED course: 27-year-old male with pneumonia and hypoxia today. Feels better after nebulizer treatments is maintaining his O2 sats at 95%. Also given steroids. We did discuss observation in the hospital but he declines this and states he will return if he worsens. Will place on doxycycline for home. Patient counseled regarding signs and symptoms for which I believe and urgent re-evaluation would be necessary. Patient with good understanding of and agreement to plan and is comfortable going home at this time This document was made in part using voice recognition software. While efforts are made to proofread this document, sound alike and grammatical errors may occur. Departure - Departure Disposition: 01 Home, Self Care Clinical Impression: Pneumonia Qualifiers: Pneumonia type: due to unspecified organism Laterality: left Lung location: upper lobe of lung Qualified Code(s): J18.1 - Lobar pneumonia, unspecified organism Condition: Good Instructions: ED Pneumonia Adult Follow-Up: THORPE,NANDA SHERLY [Primary Care Provider] - Within 3 Days Prescriptions: Albuterol Sulf [Ventolin Hfa Inhaler] 1 - 2 puffs INH Q4HR PRN #1 inhaler PRN Reason: Shortness Of Air/Wheezing Doxycycline Hyclate 100 mg PO BID #20 capsule predniSONE [Deltasone] 10 mg PO [id number] #42 tab Comments: Return if you worsen. Take all antibiotics untl gone. Discharge Date/Time: 04/01/18 16:06
[2018-04-01 16:06] VITALS: BP 116/77
== END 2018-04-01 16:06 | disposition home or self-care (01) ==
LOC: ED 12:20
DX: J18.1 Lobar pneumonia, unspecified organism (principal); R09.02 Hypoxemia; J45.909 Unspecified asthma, uncomplicated; R00.0 Tachycardia, unspecified; G82.20 Paraplegia, unspecified
CPT/HCPCS: 71045; 93005; 99283

== ENCOUNTER 2018-04-01 21:05 | Inpatient (IN) | payer MEDICARE, MEDICAID ==
[2018-04-01] MEDS ORDERED: IPRATROPIUM/ALBUTEROL 3 ML NEB INH STA (21:15)
[2018-04-01] MEDS ORDERED: methylPREDNISolone SUCCINATE 125 MG/2 ML VIAL IVP STA (21:19)
[2018-04-01] MEDS ORDERED: ALBUTEROL NEB 2.5 MG/3 ML INH STA (21:19)
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
[2018-04-01] MEDS ORDERED: cefTRIAXone 1 GM VIAL IVP STA (21:22)
[2018-04-01] MEDS ORDERED: AZITHROMYCIN INJ 500 MG in SODIUM CHLORIDE 0.9% 250 ML IV STA (21:22)
[2018-04-01 21:46] LABS: BASOPHILS % (AUTO) 0.1 %; HGB - HEMOGLOBIN 14.8 g/dL (14.0-18.0); LYMPHOCYTES % (AUTO) 4.5 %; MEAN CORPUSCULAR HEMOGLOBIN 26.7 pg (27.0-31.0); MEAN CORPUSCULAR HGB CONC 32.7 g/dL (32.0-36.0); MEAN CORPUSCULAR VOLUME 81.5 fL (80.0-94.0); MONOCYTES % (AUTO) 1.3 %; NEUTROPHILS % (AUTO) 94.1 %; PLT - PLATELET COUNT 351 10^3/uL (130-450); RED BLOOD COUNT 5.55 10^6/uL (4.70-6.10); RED CELL DISTRIBUTION WIDTH 18.8 % (12.0-15.0); WHITE BLOOD COUNT 20.6 x10^3/uL (4.8-10.8)
[2018-04-01 21:49] LABS: ABNORMAL LYMPHS % (MANUAL) 0 %
[2018-04-01 22:00] LABS: ALBUMIN 3.9 g/dL (3.2-5.5); ALBUMIN/GLOBULIN RATIO 0.8 (1.0-2.2); BILIRUBIN,TOTAL 0.7 mg/dL (0.2-1.0); CREATININE 0.8 mg/dL (0.6-1.2); TOTAL PROTEIN 8.5 g/dL (6.7-8.2)
[2018-04-01 22:05] LABS: BAND NEUTROPHILS % (MANUAL) 7 %; LYMPHOCYTES # (MANUAL) 1.6 10^3/uL (1.5-3.5); LYMPHOCYTES % (MANUAL) 8 %; NEUTROPHILS % (MANUAL) 85 %
[2018-04-01 22:06] LABS: DIFFERENTIAL COMMENT MANUAL DIFFERENTIAL; PLATELET ESTIMATE, MANUAL NORMAL (130-450,000) (NORMAL); PLATELET MORPHOLOGY NORMAL APPEARANCE (NORMAL); RBC MORPHOLOGY (MULTIPLE) 1+ ANISOCYTOSIS (NORMAL)
[2018-04-01] MEDS ORDERED: ONDANSETRON ODT 4 MG TABLET TL PRN (22:42)
[2018-04-01] MEDS ORDERED: ACETAMINOPHEN 325 MG TABLET PO PRN (22:42)
[2018-04-01] MEDS ORDERED: SODIUM CHLORIDE FLUSH 0.9% 10 ML SYRINGE IVP PRN (22:42)
[2018-04-01] MEDS ORDERED: IPRATROPIUM/ALBUTEROL 3 ML NEB INH PRN (22:59)
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
[2018-04-02 00:26] LABS: GLUCOSE, URINE (UA) NEGATIVE (NEGATIVE); KETONES,URINE (UA) NEGATIVE (NEGATIVE); LEUKOCYTE ESTERASE, URINE SMALL (NEGATIVE); NITRITE,URINE NEGATIVE (NEGATIVE); OCCULT BLOOD,URINE MODERATE (NEGATIVE); PH,URINE 5.5 PH (5.0-7.5); PROTEIN,URINE >=300 mg/dL (NEGATIVE); UROBILINOGEN,URINE 0.2 (NORMAL) E.U./dL (NORMAL)
[2018-04-02] MEDS ORDERED: LORazepam 2 MG/ML VIAL IVP STA (00:28)
[2018-04-02 00:55] LABS: BILIRUBIN,URINE NEGATIVE (NEGATIVE); CLARITY,URINE HAZY (CLEAR); ICTOTEST,URINE NEGATIVE
[2018-04-02 00:56] LABS: BACTERIA,URINE Few /HPF (None Seen); RBC,URINE 0-5 /HPF (0-5); SQUAMOUS EPITHELIAL CELL,UR MANY Squamous (<= Few)
[2018-04-02] MEDS ORDERED: SODIUM CHLORIDE FLUSH 0.9% 10 ML SYRINGE IVP SCH (01:00)
[2018-04-02 01:22] VITALS: BP 115/74
[2018-04-02 01:35] LABS: ABG PCO2 45 mmHg (34-45); ABG PH 7.26 (7.35-7.45)
[2018-04-02 01:36] LABS: ABG OXYGEN SATURATION 89 % (94-98); ABG PO2 73 mmHg (80-100); ABG TCO2 21.4 MMOL/L (21.0-29.0); ALLEN TEST POSITIVE
[2018-04-02] MEDS ORDERED: PROPOFOL 200 MG/20 ML VIAL IVP ONE (01:46)
[2018-04-02] MEDS ORDERED: SUCCINYLCHOLINE 200 MG/10 ML VIAL ONE (01:47)
[2018-04-02] MEDS ORDERED: SODIUM CHLORIDE 0.9% 1,000 ML IV ONE (01:49)
[2018-04-02] MEDS ORDERED: PROPOFOL 1000 MG/100 ML 100 ML IV SCH (02:00)
--- NOTE | 2018-04-02 02:47 | ED Physician Documentation ---
ED Addendum - Addendum Addendum: 04/02/18 02:42 Called to the ICU to help with intubation. The patient was admitted for pneumonia and was on BiPAP with respiratory distress, some acidosis, hypoxia at 88-89%. He was able to follow commands and open his mouth voluntarily with the BiPAP. Preparations were made with a glide scope in anticipation of a difficult airway due to habitus and short neck. He was on a monitor and preoxygenated with the BiPAP. He was given propofol 100 mg IV with good sedation response pro mptly. The patient was intubated with the glide scope under direct visualization and an 8 oh tube was placed. Colorimeter change was noted. Breath sounds were symmetric bilaterally. However he did have a bradycardic response to this. We continue with bag respirations. His oximetry reading was poor due to perfusion in the fingers. The hospitalist was present during this procedure and we did subsequently do a CODE BLUE in the room with given the patient atropine and epinephrine to improve the bradycardia. CPR was briefly done while the pulse was not palpable. He did have an improvement in the heart rate. There was concern with the bradycardic response that the ET tube may not be in the correct position. It was visualized again and seemed to be through the vocal cords. However it was pulled at the request of the hospitalist and we did bag respirations again. The patient was reintubated again with the glide scope after his heart rate improved and we had palpable pulses. Again the endotracheal tube was seen visualized through the vocal cords under direct visualization. The oropharynx was suctioned and did have some fluid in there. There is no obvious aspiration visible during the intubation. The patient bagged easily and again colorimetry was changes were seen. A portable chest x- ray showed the tube to be in position just above the [place] and was pulled back a centimeter. The patient has a very short neck and is obese. There was a request for further IV access and at this point I did a an IO line at the right anterior tibia with good infusion. Anesthesia was consulted and was on their way for a more controlled central line access. The patient's seem to be stabilized more at this time and ongoing care was maintained by the hospitalist. Procedure endotracheal intubation via glide scope #2 intraosseous infusion line started
--- NOTE | 2018-04-02 03:03 | XRAY Report ---
Reason: ET tube placement Procedure Date: 04/02/2018 Accession Number: [id number] / [id number] Procedure: XR - Chest 1 View X-Ray CPT Code: 96252 FULL RESULT: EXAM: CHEST RADIOGRAPHY EXAM DATE: 04/02/2018 02:39 AM. CLINICAL HISTORY: ET tube placement. COMPARISON: CHEST 1 VIEW 04/01/2018 1:22 PM. TECHNIQUE: 1 view. FINDINGS IMPRESSION: 1. Lung volumes are small as before. There is moderate left perihilar airspace disease, probably atelectasis. Small lateral right upper lobe airspace disease, possibly atelectasis as well. Infection or aspiration difficult to exclude. 2. No significant effusion. No definite evidence of a pneumothorax on this exposure. 3. Endotracheal tube tip projects 1.4 cm above the [place]. RADIA
[2018-04-02] MEDS ORDERED: VECURONIUM 10 MG VIAL ONE (03:12)
[2018-04-02] MEDS ORDERED: ROCURONIUM 50 MG/5 ML VIAL IVP ONE (03:14)
--- NOTE | 2018-04-02 03:15 | XRAY Report ---
Reason: hypoxia Procedure Date: 04/02/2018 Accession Number: [id number] / [id number] Procedure: XR - Chest 1 View X-Ray CPT Code: 37429 FULL RESULT: EXAM: CHEST RADIOGRAPHY EXAM DATE: 04/02/2018 02:54 AM. CLINICAL HISTORY: Hypoxia. COMPARISON: CHEST 1 VIEW 04/02/2018 2:20 AM. TECHNIQUE: 1 view. FINDINGS IMPRESSION: 1. Increased consolidation noted within the left upper lobe as well as within the perihilar portions of the left mid and lower lung. This may be progressive atelectasis. 2. Lung volumes are extremely small as before. Right midlung field lateral airspace disease is again seen, similar to the prior study. 3. Possible small left-sided effusion. 4. Orogastric tube is difficult to identify beyond the midportion of the mediastinum. RADIA
[2018-04-02] MEDS ORDERED: EPINEPHrine 1 MG/ML AMP ONE ×2 (03:48→03:53)
--- NOTE | 2018-04-02 04:14 | ANESTHESIA PROCEDURE NOTE ---
Height and Weight: Height 5 ft 4 in Weight (kg) 159 kg Body Mass Index 60.1 Vital Signs: Temp Pulse Resp BP Pulse Ox 36.9 C 147 H 39 H 115/74 91 L 04/02/18 00:00 04/02/18 01:00 04/02/18 01:00 04/02/18 01:00 04/02/18 01:00 Allergies No Known Drug Allergies Allergy (Verified 04/01/18 12:42) Procedure Notes: Called in urgently to place central line for 27 year old male with respiratory failure. Patient was intubated by ED physician prior to my arrival. Patient was having paradoxical respirations and was manually bagged by attending hospitalist. Shortly thereafter, patient's heart rate dropped from 110s to 30s. Code blue was called and compressions started. Patient responded to epinephrine pushes with return of pulses multiple times. The attending physician asked for ideas to better ventilate the patient. I suggested paralysing the patient and placing patient on pressure control with peep. A total of 80mg rocuronium was given IV push and patient was returned to ventilator by RT. Initially with pressure control, only TV of 100s was obtained. After further adjustment by RT adequate TV (400-500), peak inspiratory pressure of 25-30, respiratory rate of 24 and PEEP of 5-10 was obtained. . EtCO2 was positive and bilateral breath sounds, indicating the ETT was in the correct place. However, patient continued to deteriorate and required multiple rounds of epinephrine and chest compressions. Due to continual cardiac arrest, I was unable to place central line. Care was returned to the attending hospitalist.
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
[2018-04-02] MEDS ORDERED: AZITHROMYCIN 250 MG TABLET PO SCH (09:00)
[2018-04-02] MEDS ORDERED: ENOXAPARIN 40 MG/0.4 ML SYRINGE SUBQ SCH (09:00)
[2018-04-02] MEDS ORDERED: SODIUM CHLORIDE FLUSH 0.9% 10 ML SYRINGE ONE (12:37)
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
[2018-04-02] MEDS ORDERED: cefTRIAXone 1 GM in SODIUM CHLORIDE 0.9% MINIBAG 100 ML IV SCH (22:00)
== END 2018-04-02 03:49 | disposition expired | DRG 871 ==
LOC: ED 21:05 → ICU 22:42
PROVIDERS: ADMIT Internal Medicine; ATTEND Internal Medicine
PROC: 5A1935Z Respiratory Ventilation, Less than 24 Consecutive Hours (ICD-10-PCS; principal; 2018-04-01)
PROC: 0BH17EZ Insertion of Endotracheal Airway into Trachea, Via Natural or Artificial Opening (ICD-10-PCS; 2018-04-01)
PROC: 5A12012 Performance of Cardiac Output, Single, Manual (ICD-10-PCS; 2018-04-01)
PROC: 5A12012 Performance of Cardiac Output, Single, Manual (ICD-10-PCS; 2018-04-01)
DX: A41.9 Sepsis, unspecified organism (principal); J18.9 Pneumonia, unspecified organism; J96.01 Acute respiratory failure with hypoxia; J45.901 Unspecified asthma with (acute) exacerbation; E87.2 Acidosis; G82.20 Paraplegia, unspecified; Z68.44 Body mass index [BMI] 60.0-69.9, adult; R00.1 Bradycardia, unspecified; G47.30 Sleep apnea, unspecified; J45.909 Unspecified asthma, uncomplicated; E66.01 Morbid (severe) obesity due to excess calories
CPT/HCPCS: 36415; 36600; 71045; 80048; 80053; 81001; 81003; 82803; 83605; 83690; 85025; 87040; 87086; 87150; 92950; 93005; 94640; 94660; 96365; 96374; 96375; 99283; 99285